=== PATIENT | male | born 1950 | race Caucasian/White ===

== ENCOUNTER → 2019-08-17 | Outpatient (CLI) | payer MEDICARE ==
--- NOTE | 2019-08-23 09:57 | P.ARTDOP ---
Arterial Doppler LOWER EXTREMITY ARTERIAL DOPPLER: DATE OF SERVICE: 08/17/2019 Reason for study: Suspected lower extremity occlusive disease. Doppler waveforms: Atypical bilaterally throughout. Toe waveforms are low amplitude and monophasic. Pulse volume recording: []. Pressure gradients: Above the low thigh and distally. Ankle-brachial indices: 0.62 on the right and 0.5 on the left. Toe pressures: 35 on the right, 33 on the left Impression: Moderate femoral popliteal occlusive disease with possible iliac component bilaterally. Toe pressures marginal for healing. Clinical correlation recommended.
== END | disposition home or self-care (01) ==
LOC: RADUSWWP 12:04
PROVIDERS: ATTEND Internal Medicine
DX: I74.3 Embolism and thrombosis of arteries of the lower extremities (principal)
CPT/HCPCS: 93923

== ENCOUNTER → 2019-08-28 | Outpatient (CLI) | payer MEDICARE ==
--- NOTE | 2019-08-29 08:04 | CTL ---
EXAMINATION TYPE: CT Low Dose Lung DATE OF EXAM ORDERED: 08/28/2019 HISTORY: Personal history of tobacco use. Lung cancer screening CT DLP: [address] CTDI: 1.95 mGy Automated exposure control for dose reduction was used. SCREENING VISIT: Initial COMPARISON: None TECHNIQUE: Low dose computed tomography scan was performed through the chest at 1 mm thick sections a nd reconstructed images in the coronal plane at [address] DIAGNOSTIC QUALITY: Limited, but interpretable FINDINGS: LUNG NODULES: None. LUNGS: COPD: Severity: None Fibrosis: Severity: None Lymph nodes: None Other findings: None RIGHT PLEURAL SPACE: Effusion: None Calcification: None Thickening: None Pneumothorax: None LEFT PLEURAL SPACE: Effusion: None Calcification: None Thickening: None Pneumothorax: None HEART: Heart Size: Normal Coronary calcification: Moderate Pericardial effusion: None OTHER FINDINGS: Upper abdomen: Normal Bony thorax: Unremarkable Supraclavicular region: Normal Other: Ascending thoracic aorta at the level the main pulmonary artery measures 3.3 cm. The main pul monary artery at the bifurcation measures 2.5 cm. IMPRESSION: 1. Unremarkable low-dose screening CT chest FOLLOW UP CT CHEST RECOMMENDATION: Follow-up per protocol low dose screening in [address] LUNG RAD: 1
== END | disposition home or self-care (01) ==
LOC: RADCTMAIN 15:37
PROVIDERS: ATTEND Internal Medicine
DX: Z12.2 Encounter for screening for malignant neoplasm of respiratory organs (principal); F17.200 Nicotine dependence, unspecified, uncomplicated

== ENCOUNTER → 2020-09-18 | Outpatient (CLI) | payer MEDICARE ==
--- NOTE | 2020-09-18 15:08 | CTL ---
EXAMINATION TYPE: CT Low Dose Lung DATE OF EXAM ORDERED: 09/18/2020 HISTORY: Long-term tobacco use. Lung cancer screening CT DLP: 96.[address] CTDI: 2.60 mGy Automated exposure control for dose reduction was used. SCREENING VISIT: First after baseline COMPARISON: Prior study August 28, 2019 TECHNIQUE: Low dose computed tomography scan was performed through the chest at 1 mm thick sections a nd reconstructed images in the coronal plane at [address] DIAGNOSTIC QUALITY: Limited, but interpretable MIP imaging not performed. FINDINGS: LUNG NODULES: None. A 6 mm peripheral scarlike opacity in the right lower lobectomies 195 appears to elongate on coronal and sagittal images. LUNGS: COPD: Severity: Mild to moderate Fibrosis: Severity: Mild to moderate biapical Lymph nodes: No greater than 1 cm Other findings: None BILATERAL PLEURAL SPACE: Effusion: None Calcification: None Thickening: None Pneumothorax: None HEART: Heart Size: Normal Coronary calcification: Moderate to severe Pericardial effusion: None OTHER FINDINGS: Upper abdomen: Small intraluminal gallstones Bony thorax: Slight scoliotic curvature Supraclavicular region: None. Other: None. IMPRESSION: No new suspicious nodules. FOLLOW UP CT CHEST RECOMMENDATION: Annual low-dose lung screening CT CT LUNG RAD: Lung-Rad 1 Negative
== END | disposition home or self-care (01) ==
LOC: RADCTMAIN 13:16
PROVIDERS: ATTEND Family Medicine
DX: Z12.2 Encounter for screening for malignant neoplasm of respiratory organs (principal); F17.210 Nicotine dependence, cigarettes, uncomplicated

== ENCOUNTER → 2021-04-21 | Outpatient (CLI) | payer MEDICARE ==
[2021-04-21 15:43] LABS: Basophils # (A) 0.1 k/uL (0-0.2); Basophils % (A) 1 %; Eosinophils # (A) 0.2 k/uL (0-0.7); Eosinophils % (A) 3 %; HGB 13.7 gm/dL (13.0-17.5); Lymphocytes # (A) 1.2 k/uL (1.0-4.8); Lymphocytes % (A) 16 %; MCH 31.4 pg (25.0-35.0); MCHC 33.3 g/dL (31.0-37.0); MCV 94.5 fL (80.0-100.0); Mean Platelet Volume 11.3; Monocytes # (A) 0.4 k/uL (0-1.0); Monocytes % (A) 6 %; Neutrophils # (A) 5.4 k/uL (1.3-7.7); Neutrophils % (A) 73 %; Platelet Count 176 k/uL (150-450); RBC 4.34 m/uL (4.30-5.90); RDW 13.6 % (11.5-15.5); WBC 7.4 k/uL (3.8-10.6)
[2021-04-21 15:53] LABS: Potassium 4.9 mmol/L (3.5-5.1)
== END | disposition home or self-care (01) ==
LOC: LABPAT 15:07
PROVIDERS: ATTEND Surgery
DX: Z01.812 Encounter for preprocedural laboratory examination (principal); I73.9 Peripheral vascular disease, unspecified
CPT/HCPCS: 80051; 82565; 84520; 85025

== ENCOUNTER 2021-05-07 11:44 | Day surgery (SDC) | payer MEDICARE ==
[2021-05-05 12:30] VITALS: BMI 25.7
[~2021-05-07 11:44] MED LIST: ASPIRIN 325 MG TAB PO PRN; SODIUM CHLORIDE 0.9% 1,000 ML in EMPTY BAG 1 BAG IV ONE
[2021-05-07] MEDS ORDERED: SODIUM CHLORIDE 0.9% 1,000 ML IV ONE (12:05)
[2021-05-07 12:09] LABS: Glucose,Whole Blood 128 mg/dL (75-99)
[2021-05-07] MEDS ORDERED: LIDOCAINE 1% INJ 10MG/ML (20 ML MDV) ONE (12:43)
[2021-05-07] MEDS ORDERED: MIDAZOLAM 2 MG/2 ML VIAL IV ONE (13:05)
[2021-05-07] MEDS ORDERED: LIDOCAINE 1% INJ 10MG/ML (20 ML MDV) SQ ONE (13:07)
[2021-05-07] MEDS ORDERED: CLOPIDOGREL 75 MG TAB ONE (14:21)
[2021-05-07] MEDS ORDERED: IOPAMIDOL-250 100ML BTL INTRAARTER ONE ×2 (14:25→14:26)
[2021-05-07] MEDS ORDERED: CLOPIDOGREL 75 MG TAB PO ONE (14:26)
[2021-05-07] MEDS ORDERED: SODIUM CHLORIDE 0.9% 1,000 ML IV SCH (14:30)
--- NOTE | 2021-05-07 17:33 | P.OP ---
Date of Procedure: 05/07/21 Description of Procedure: Preoperative diagnosis: E[place] 3 peripheral arterial disease, iliac occlusive disease, abnormal ALEJANDRO Postoperative diagnosis: Same Procedure: [#1 ultrasound-guided right common femoral artery access #2 ultrasound-guided left common femoral artery access #3 left iliofemoral angiogram #4 aortogram with runoffs #5 selective third order right lower extremity injury #6 percutaneous transluminal balloon angioplasty of the external iliac artery with 6 x 60 balloon #7 percutaneous self-expanding stent placement of the external iliac artery with a 7 x 60 stent #8 73 minutes of moderate conscious sedation] Surgeon: Sherin Block D.O. EBL: [Less than 10 mL] IV fluids: [See records] Urine output: [See records] Drains: [None] Complications: [None immediately apparent] Condition: [None immediately apparent] Operative indication and findings: [The patient is a 70-year-old male who has been having increasing pain in his lower extremities with ambulation. He was offered a diagnostic angiogram and presents today for this. Angiographic findings: The aorta appeared normal in course and caliber. Bilateral renal arteries are patent without evidence of significant disease. The infrarenal aorta is patent with some diffuse disease. Patent inferior mesenteric artery. On the right the common iliac artery has evidence of calcific disease without significant stenosis. The internal iliac artery appears patent without evidence of significant stenosis. There is an area of a pproximately 90% stenosis of the external iliac artery with a widely patent femoral artery the superficial femoral artery appears widely patent. Is difficult to visualize profunda femoris artery with areas of branching but no obvious profunda noted. There is three-vessel runoff at its takeoff with a patent AT and PT at the ankle On the left the common iliac artery has evidence of calcific disease without significant stenosis. The internal iliac has severe significant disease and is very small in caliber. The external iliac has an area of approximately 60% stenosis. The common femoral artery is widely patent. The profunda femoris appears, off in a medial fashion there is an area of high-grade stenosis at its takeoff. The superficial femoral artery is patent and does appear to have n umerous branches of collateral flow. The superficial femoral artery does occlude [place] after its takeoff and reconstitutes at the thigh. There appears to be an abnormal takeoff of the posterior tibial artery with a high branching at the level of the knee. Anterior tibial is patent although diminutive shortly after it's takeoff. There are 2 vessels at the ankle appearing to be the peroneal and posterior tibial ] Procedure in detail: [Patient was taken to the special suite and placed in supine position. The groins were prepped and draped in usual sterile fashion. A preprocedure timeout was performed with all parties in agreement. The ultrasound was utilized in the right common femoral artery was identified. There appeared to be a diminished pulse at this area. The multipurpose needle was used after proper anesthetization of the skin and the arteries access. The area was inability to pass the wire therefore the wire and needle removed. Pressure was held until hemostasis is adequate. Access was then performed on the left femoral artery with ultrasound guidance. Seldinger technique was used and a 5-Occitan sheath was placed. A left iliofemoral angiogram was performed revealing A 60% stenosis of the external iliac artery. Catheters wires were used to place in the aorta and an aortogram was performed. The catheter was brought down the level of the iliac bifurcation the bilateral lower extremity runoff was performed. With the findings as above. The decision was made at this time to treat the right external iliac artery given the degree of stenosis. Catheters and wires were used across this and a confirmatory angiogram was performed through the superficial femoral artery. A balloon angioplasty was performed with a 6 x 60 balloon repeat images performed revealing a dissection through this vessel therefore a noncovered self expanding stent was placed. After this a further angiogram was performed revealing good apposition with brisk flow. The patient had a strong palpable femoral pulse following this. That point catheters and wires were removed, the plan will be to come back for the left lower extremity treatment iliac and superficial femoral artery at that time. The sheath was removed and pressure was held until hemostasis was adequate. Plan - Discharge Summary Discharge Rx Participant: No New Discharge Prescriptions: New Clopidogrel [Plavix] 75 mg PO DAILY #30 tablet No Action Cyanocobalamin [Vitamin B-12] 500 mcg PO MOTUWETHFR Cilostazol [Pletal] 100 mg PO BID Atorvastatin [Lipitor] 40 mg PO HS lisinopriL [Zestril] 5 mg PO HS Aspirin [Adult Low Dose Aspirin EC] 81 mg PO QAM metFORMIN HCL [Glucophage] 500 mg PO BID Omeprazole 20 mg PO QAM NIFEdipine [NIFEdipine ER] 30 mg PO HS Discharge Medication List Aspirin [Adult Low Dose Aspirin EC] 81 mg PO QAM 05/05/21 [History] Atorvastatin [Lipitor] 40 mg PO HS 05/05/21 [History] Cilostazol [Pletal] 100 mg PO BID 05/05/21 [History] Cyanocobalamin [Vitamin B-12] 500 mcg PO MOTUWETHFR 05/05/21 [History] NIFEdipine [NIFEdipine ER] 30 mg PO HS 05/05/21 [History] Omeprazole 20 mg PO QAM 05/05/21 [History] lisinopriL [Zestril] 5 mg PO HS 05/05/21 [History] metFORMIN HCL [Glucophage] 500 mg PO BID 05/05/21 [History] Clopidogrel [Plavix] 75 mg PO DAILY #30 tablet 05/07/21 [Rx] Follow up Appointment(s)/Referral(s): Sherin Block DO [STAFF PHYSICIAN] - 05/14/21 11:45 am Patient Instructions/Handouts: Peripheral Vascular Angioplasty (DC) Activity/Diet/Wound Care/Special Instructions: Light activity, no heavy lifting for 48h. Resume home medications. HOLD Metformin for 48 hours, then resume. Discharge Disposition: HOME SELF-CARE
[2021-05-07 17:40] VITALS: TEMP 98.7
[2021-05-07 20:01] VITALS: BP 167/80; PULSE 67
[2021-05-07 20:10] VITALS: RESP 18
[2021-05-07 20:28] LABS: Glucose,Whole Blood 186 mg/dL (75-99)
--- NOTE | 2021-05-08 09:13 | IR ---
Fluoroscopy HISTORY: Peripheral vascular occlusive disease 7.2 minutes fluoroscopy time supplied to the referring clinician. 143 intraoperative C-arm images d ocument the procedure. See dictated report from vascular surgery.
== END 2021-05-07 20:55 | disposition home or self-care (01) ==
LOC: CATHCVL 11:44 → 6NMEDSUR 15:30 → CATHCVL 20:55
PROVIDERS: ATTEND Surgery
DX: E11.51 Type 2 diabetes mellitus with diabetic peripheral angiopathy without gangrene (principal); I70.211 Atherosclerosis of native arteries of extremities with intermittent claudication, right leg; I10 Essential (primary) hypertension; E78.5 Hyperlipidemia, unspecified; E11.40 Type 2 diabetes mellitus with diabetic neuropathy, unspecified; J84.10 Pulmonary fibrosis, unspecified; Z20.822 Contact with and (suspected) exposure to COVID-19; Z82.49 Family history of ischemic heart disease and other diseases of the circulatory system; Z87.891 Personal history of nicotine dependence; Z79.84 Long term (current) use of oral hypoglycemic drugs; Z79.02 Long term (current) use of antithrombotics/antiplatelets; Z79.82 Long term (current) use of aspirin; Z79.899 Other long term (current) drug therapy
CPT/HCPCS: 37221; 75625; 75716; 87635; C1894 ×2; C1769 ×5; C1876; J2250; J2001; Q9966

== ENCOUNTER 2021-09-15 17:17 | Inpatient (IN) | payer MEDICARE ==
[2021-09-15 18:03] LABS: Basophils # (A) 0.1 k/uL (0-0.2); Basophils % (A) 0 %; Eosinophils # (A) 0.2 k/uL (0-0.7); Eosinophils % (A) 1 %; HCT 40.6 % (39.0-53.0); HGB 13.7 gm/dL (13.0-17.5); Lymphocytes # (A) 1.1 k/uL (1.0-4.8); Lymphocytes % (A) 5 %; MCH 31.5 pg (25.0-35.0); MCHC 33.8 g/dL (31.0-37.0); MCV 92.9 fL (80.0-100.0); Mean Platelet Volume 10.6; Monocytes % (A) 5 %; Neutrophils # (A) 18.8 k/uL (1.3-7.7); Neutrophils % (A) 87 %; Platelet Count 311 k/uL (150-450); RBC 4.37 m/uL (4.30-5.90); RDW 13.1 % (11.5-15.5); WBC 21.6 k/uL (3.8-10.6)
[2021-09-15 18:11] LABS: Albumin 4.4 g/dL (3.5-5.0); Calcium 9.5 mg/dL (8.4-10.2); Magnesium 1.6 mg/dL (1.6-2.3); Potassium 4.5 mmol/L (3.5-5.1); Total Bilirubin 1.2 mg/dL (0.2-1.3); Total Protein 8.1 g/dL (6.3-8.2)
[2021-09-15 18:40] LABS: Partial Thromboplastin Time 24.9 sec (22.0-30.0); Prothrombin Time 10.8 sec (9.0-12.0)
--- NOTE | 2021-09-15 18:47 | ED ---
Chest Pain HPI - General Chief Complaint: Chest Pain Stated Complaint: chest pain Time Seen by Provider: 09/15/21 17:25 Source: patient Mode of arrival: ambulatory Limitations: no limitations - History of Present Illness Initial Comments: 71-year-old male presents emergency Department with shortness of breath and chest pain. He states that his symptoms have been going on for the past month. He did follow up with his primary care physician who diagnosed him with ALLERGIES. States that over the course of the weekend his chest became worse. He describes it as pleuritic in nature. Starts in the mid center of his chest and radiates to the left shoulder. Pain was intermittent however has become constant. Denies any fevers. Patient was vaccinated against influenza last week. Received Covid vaccine earlier this year. He denies any fevers or chills. Does admit to associated shortness of breath. No nausea or vomiting. No previous history of cardiac or pulmonary disease. Patient was a smoker for several decades however quit. Denies cough. No history of DVT or PE. No other alleviating, precipitating or modifying factors - Related Data Home Medications Medication Instructions Recorded Confirmed Aspirin [Adult Low Dose Aspirin EC] 81 mg PO DAILY 05/05/21 09/15/21 Atorvastatin [Lipitor] 40 mg PO DAILY 05/05/21 09/15/21 Cyanocobalamin [Vitamin B-12] 500 mcg PO MOTUWETHFR 05/05/21 09/15/21 NIFEdipine [NIFEdipine ER] 30 mg PO DAILY 05/05/21 09/15/21 lisinopriL [Zestril] 5 mg PO DAILY 05/05/21 09/15/21 metFORMIN HCL [Glucophage] 500 mg PO BID 05/05/21 09/15/21 Ergocalciferol (Vitamin D2) 1,250 mcg PO FR 09/15/21 09/15/21 [Drisdol (50,000 Iu)] Fluticasone Nasal [place] [Flonase 1 spray EA NOSTRIL DAILY 09/15/21 09/15/21 Nasal [place]] Montelukast [Singulair] 10 mg PO DAILY 09/15/21 09/15/21 Previous Rx's Medication Instructions Recorded Clopidogrel [Plavix] 75 mg PO DAILY #30 tablet 05/07/21 Colchicine [Colcrys] 0.6 mg PO DAILY #30 each 09/18/21 Allergies Allergy/AdvReac Type Severity Reaction Status Date / Time No Known Allergies Allergy Verified 09/15/21 19:37 Review of Systems ROS Statement: Those systems with pertinent positive or pertinent negative responses have been documented in the HPI. ROS Other: All systems not noted in ROS Statement are negative. EKG Findings - EKG Comments: EKG Findings:: EKG demonstrates sinus tachycardia with a ventricular rate of 105. NM interval 170. QRS 68. QTC of 449. No acute ST segment elevations. J-point elevation in the inferior leads. Inverted T waves 1 and aVL Past Medical History Past Medical History: Diabetes Mellitus, GERD/Reflux, Hyperlipidemia, Hyperten travis Additional Past Medical History / Comment(s): hx of peptic ulcer, pain carmelo legs History of Any Multi-Drug Resistant Organisms: None Reported Past Surgical History: Orthopedic Surgery Additional Past Surgical History / Comment(s): left ankle ORIF with metal, now removed Past Anesthesia/Blood Transfusion Reactions: No Reported Reaction Past Psychological History: Depression Smoking Status: Former smoker Past Alcohol Use History: None Reported Past Drug Use History: None Reported - Past Family History Father Family Medical History: Myocardial Infarction (OR) Additional Family Medical History / Comment(s): Father of a OR at the age of 84 yrs. Mother Additional Family Medical History / Comment(s): Mother was found at the age of 42yrs. General Exam Limitations: no limitations General appearance: alert, in no apparent distress Head exam: Present: atraumatic, normocephalic, normal inspection Eye exam: Present: normal appearance, PERRL, EOMI. Absent: scleral icterus, conjunctival injection, periorbital swelling ENT exam: Present: normal exam, mucous membranes moist Neck exam: Present: normal inspection. Absent: tenderness, meningismus, lymphadenopathy Respiratory exam: Present: normal lung sounds bilaterally, other (tachypnia). Absent: respiratory distress, wheezes, rales, rhonchi, stridor Cardiovascular Exam: Present: normal rhythm, tachycardia, normal heart sounds. Absent: systolic murmur, diastolic murmur, rubs, gallop, clicks GI/Abdominal exam: Present: soft, normal bowel sounds. Absent: distended, tenderness, guarding, rebound, rigid Extremities exam: Present: normal inspection, full ROM, normal capillary refill. Absent: tenderness, pedal edema, joint swelling, calf tenderness Back exam: Present: normal inspection Neurological exam: Present: alert, oriented X3, CN II-XII intact Psychiatric exam: Present: normal affect, normal mood Skin exam: Present: warm, dry, intact, normal color. Absent: rash Course Vital Signs 09/15/21 09/15/21 09/15/21 17:21 18:48 22:29 Temperature 96.8 F L 97.6 F Pulse Rate 107 H 100 113 H Pulse Rate [ Piano Technician ] Respiratory 18 20 22 Rate Blood Pressure 165/88 149/83 137/79 Blood Pressure [Right Arm] O2 Sat by Pulse 97 100 96 Oximetry 09/15/21 09/16/21 09/16/21 23:30 01:00 03:00 Temperature Pulse Rate 106 H 112 H 109 H Pulse Rate [ Piano Technician ] Respiratory 18 18 18 Rate Blood Pressure Blood Pressure [Right Arm] O2 Sat by Pulse 94 L 93 L 93 L Oximetry 09/16/21 09/16/21 09/16/21 05:00 10:17 10:22 Temperature 98.1 F 97.4 F L Pulse Rate 110 H 123 H Pulse Rate [ Piano Technician ] Respiratory 18 18 Rate Blood Pressure 147/95 155/97 Blood Pressure [Right Arm] O2 Sat by Pulse 93 L 94 L Oximetry 09/16/21 09/17/21 09/17/21 20:00 00:00 01:25 Temperature 98.3 F 98.3 F Pulse Rate Pulse Rate [ 101 H 103 H 103 H Piano Technician ] Respiratory 16 18 18 Rate Blood Pressure Blood Pressure 125/71 125/66 [Right Arm] O2 Sat by Pulse 94 L 91 L Oximetry 09/17/21 09/17/21 09/17/21 04:00 08:38 12:45 Temperature 98.1 F 98.5 F 98.1 F Pulse Rate 92 93 Pulse Rate [ 99 Piano Technician ] Respiratory 17 18 18 Rate Blood Pressure 108/63 114/61 Blood Pressure 127/70 [Right Arm] O2 Sat by Pulse 93 L 95 96 Oximetry 09/17/21 09/17/21 14:31 15:51 Temperature 98.9 F Pulse Rate 96 91 Pulse Rate [ Piano Technician ] Respiratory 18 18 Rate Blood Pressure 105/57 109/60 Blood Pressure [Right Arm] O2 Sat by Pulse 97 96 Oximetry - Reevaluation(s) Reevaluation #1: Spoke with Dr. Garcia 09/15/21 22:23 Chest Pain MDM - MDM Upon arrival patient is placed into room 5. A thorough history and physical exam was performed. IV is established and laboratory studies are conducted. Patient is sent over for a CT of his chest due to his reported pleuritic chest pain with elevated heart rate. Laboratory studies are reviewed and demonstrated a white count of 21.6. D-dimer 0.82. Sodium 128. CT demonstrates no acute PE. There is a moderate pericardial effusion with dependent atelectasis and a trace left pleural effusion. I did call and speak with Dr. Garcia who is requesting a stat echo. I did attempt to perform a bedside ultrasound however patient is extremely difficult to visualize. We did call in the laboratory technology teacher. I spoke with Dr. Frias who agreed to admit the patient. I will place the patient on antibiotics. Patient remained in hemodynamically stable condition awaiting a bed Disposition Clinical Impression: Chest pain, Pericardial effusion Disposition: ADMITTED IP TO THIS [facility] Condition: Good Is patient prescribed a controlled substance at d/c from ED?: No Decision to Admit Reason: Admit from EC Decision Date: 09/15/21 Decision Time: 22:15
--- NOTE | 2021-09-15 19:20 | CT ---
EXAMINATION TYPE: CT chest angio for PE DATE OF EXAM: 09/15/2021 COMPARISON: 09/18/2020 HISTORY: Chest pain. CT DLP: 390.1 mGycm Automated exposure control for dose reduction was used. CONTRAST: CT Chest for pulmonary embolism performed with with IV Contrast, patient injected with 100 mL of Isov ue 370. FINDINGS: LUNGS: There is mild dependent opacities with trace left pleural effusion. No pneumothorax seen. The tracheobronchial tree is patent. MEDIASTINUM: There is satisfactory enhancement of the pulmonary artery and its branches, there is no CT evidence for pulmonary embolism. There are no greater than 1 cm hilar or mediastinal lymph nodes. Moderate pericardial effusion is seen. Otherwise heart size within normal limits OTHER: No additional significant abnormality is seen. IMPRESSION: No acute PE. Moderate pericardial effusion. Dependent atelectasis with trace left pleural effusion.
[2021-09-15] MEDS ORDERED: PIPERACILLIN-TAZOBACTAM 3.375 GM in SODIUM CHLORIDE 0.9% 100 ML IVPB STA (21:59)
[2021-09-15] MEDS ORDERED: NALOXONE 0.4 MG/ML 1 ML VIAL IV PRN (22:15)
[2021-09-16 03:18] LABS: Basophils % (A) 0 %; Eosinophils % (A) 0 %; HCT 37.1 % (39.0-53.0); Lymphocytes # (A) 0.8 k/uL (1.0-4.8); Lymphocytes % (A) 4 %; MCH 31.6 pg (25.0-35.0); MCHC 34.9 g/dL (31.0-37.0); MCV 90.4 fL (80.0-100.0); Mean Platelet Volume 10.7; Monocytes % (A) 5 %; Neutrophils % (A) 91 %; Platelet Count 278 k/uL (150-450); RBC 4.11 m/uL (4.30-5.90); RDW 13.7 % (11.5-15.5); WBC 20.9 k/uL (3.8-10.6)
[2021-09-16 03:35] LABS: Calcium 8.8 mg/dL (8.4-10.2); Potassium 4.9 mmol/L (3.5-5.1)
--- NOTE | 2021-09-16 10:00 | ECHOF ---
Referral Reason: MEASUREMENTS -------- HEIGHT: 0.0 cm WEIGHT: 0.0 kg BP: IVSd: 1.8 cm (0.6 - 1.1) LVIDd: 3.5 cm (3.9 - 5.3) LVPWd: 1.7 cm (0.6 - 1.1) IVSs: 2.1 cm LVIDs: 2.4 cm LVPWs: 1.1 cm Ao Diam: 2.9 cm (2.0 - 3.7) LA Diam: 4.5 cm (2.7 - 3.8) MV E Jaun: 0.79 m/s MV DecT: 309 ms MV A Jaun: 1.20 m/s MV E/A Ratio: 0.66 FINDINGS -------- Resting tachycardia (HR>100bpm). This was a technically difficult study with suboptimal views. The left ventricular size is normal. There is moderate concentric left ventricular hypertrophy. O verall left ventricular systolic function is normal with, an EF between 55 - 60 %. The RV was not well visualized. The left atrium was not well visualized. The right atrium was not well visualized. 5.0mg of Lumason was utilized for enhancement of images The aortic valve was not well visualized. There is no evidence of aortic regurgitation. There is no evidence of aortic stenosis. No mitral regurgitation. The tricuspid valve was not well visualized. The pulmonic valve was not well visualized. The aortic root size is normal. IVC Not well visulized. There is a moderate, generalized pericardial effusion present. There is no evidence of cardiac tamp onade. CONCLUSIONS -------- 1. The left ventricular size is normal. 2. There is moderate concentric left ventricular hypertrophy. 3. Overall left ventricular systolic function is normal with, an EF between 55 - 60 %. 4. There is a moderate, generalized pericardial effusion present. GRADUATE ADVISOR: Mckayla Leavitt RDCS
[2021-09-16] MEDS: ATORVASTATIN 40 MG TAB PO SCH (10:16)
[2021-09-16] MEDS: MONTELUKAST 10 MG TAB PO SCH (10:16)
[2021-09-16] MEDS: COLCHICINE 0.6 MG EACH PO SCH (11:16)
[2021-09-16] MEDS: PANTOPRAZOLE 40 MG TABLET PO SCH (11:16)
[2021-09-16] MEDS: IBUPROFEN 800 MG TAB PO SCH ×2 (11:16→23:12)
[2021-09-16] MEDS: lisinopriL 5 MG TAB PO SCH (12:28)
--- NOTE | 2021-09-16 13:13 | P.HPIM ---
History of Present Illness H&P Date: 09/16/21 HISTORY OF PRESENT ILLNESS This is a 71-year-old male patient of Dr. Monge with past medical history of mild intermittent asthma, diabetes mellitus type 2, hypertension, hyper lipidemia, peripheral artery disease, remote history of tobacco use. Patient states that he has had chest pain for the past 2-3 weeks and then developed difficulty taking a deep breath. He started taking Motrin when the pain lasted longer. He is now having shortness of breath and pain with breathing and came into the hospital for further evaluation. Patient was found to be afebrile, heart rate 107, blood pressure 165/88, pulse ox 97% on room air. EKG was a sinus tachycardia, T-wave inversion in lead [address] angiogram of the chest was negative for PE. Moderate pericardial effusion. Dependent atelectasis with trace left pleural effusion. Echocardiogram reveals EF of 55-60% with moderate concentric left hypertrophy, moderate generalized pericardial effusion. Patient is seen today in the emergency center waiting for a bed on the cardiac stepdown unit, consult in place with cardiology and cardiothoracic surgery regarding her cardial effusion. REVIEW OF SYSTEMS Constitutional: No fever, no chills, no night sweats. No weight change. No weakness, fatigue or lethargy. No daytime sleepiness. EENT: No headache. No blurred vision or double vision, no loss of vision. No loss of Hearing, no ringing in the ears, no dizziness. No nasal drainage or c ongestion. No epistaxis. No sore throat. Lungs: No shortness of breath, cough, no sputum production. No wheezing. Cardiovascular: No chest pain, no lower extremity edema. No palpitations. No paroxysmal nocturnal dyspnea. No orthopnea. No lightheadedness or dizziness. No syncopal episodes. Abdominal: No abdominal pain. No nausea, vomiting. No diarrhea. No constipation. No bloody or tarry stools. No loss of appetite. Genitourinary: No dysuria, increased frequency, urgency. No urinary retention. Musculoskeletal: No myalgias. No muscle weakness, no gait dysfunction, no frequent falls. No back pain. No neck pain. Integumentary: No wounds, no lesions. No rash or pruritus. No unusual bruising. No change in hair or nails. Neurologic: No aphasia. No facial droop. No change in mentation. No head injury. No headache. No paralysis. No paresthesia. Psychiatric: No depression. No anxiety. No mood swings. Endocrine: No abnormal blood sugars. No weight change. No excessive sweating or thirst. No cold intolerance. SOCIAL HISTORY Patient was a smoker of one to 3 packs per day for greater than 50 years and quit in November 2019. No alcohol use, marijuana or illicit drug use. 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 FAMILY HISTORY Father at age 84 from myocardial infarction. Mother at age 42 from myocardial infarction. Patient is 2 brothers and one has history of MS and when his platelets problems. PHYSICAL EXAMINATION Gen: This is 71-year-old male, resting on the ER stretcher and appears to be comfortable, no acute respiratory distress noted. HEENT: Head is atraumatic, normocephalic. Pupils equal, round. Sclerae is anicteric. NECK: Supple. No JVD. No lymphadenopathy. No thyromegaly. LUNGS: Lung sounds diminished bilaterally. No wheezes or rhonchi. No intercostal retractions. HEART: Irregular rate and rhythm. No murmur. ABDOMEN: Soft. Bowel sounds are present. No masses. No tenderness. EXTREMITIES: No pedal edema. No calf tenderness. NEUROLOGICAL: Patient is awake, alert and oriented x3. Cranial nerves 2 through 12 are grossly intact. ASSESSMENT AND PLAN 1. Chest pain. Patient to be admitted to the cardiac stepdown unit, cardiology consult. 2. Pericardial effusion. Consult cardiology and cardiothoracic surgery. Patient has been started on colchicine 0.6 mg daily, Motrin 800 mg 3 times daily. Plavix and aspirin on hold until patient evaluated by cardiothoracic surgery. 3. Mild intermittent asthma without exacerbation. Continue Flonase and Singulair. 4. Diabetes mellitus type 2. Metformin on hold. Continue NovoLog scale before meals and at bedtime. 5. Hypertension. Continue lisinopril 5 mg daily, Procardia XL 30 mg daily. 6. Hyperlipidemia. Continue Lipitor 40 mg daily. 7. Peripheral artery disease. Resume patient on Plavix 75 mg daily and aspirin once cleared by cardiothoracic surgery. 8. GI prophylaxis. Protonix. 9. DVT prophylaxis. Patient will be admitted to the hospital for a minimum of 2 night stay. DISCHARGE PLAN [ ]. Impression and plan of care have been directed as dictated by the signing physician. Mary Patel nurse practitioner acting as scribe for signing physician. Past Medical History Past Medical History: COPD, Diabetes Mellitus, GERD/Reflux, Hyperlipidemia, Hypertension, Vascular Disorder Additional Past Medical History / Comment(s): hx of peptic ulcer, pain carmelo legs History of Any Multi-Drug Resistant Organisms: None Reported Past Surgical History: Orthopedic Surgery Additional Past Surgical History / Comment(s): left ankle ORIF with metal, now removed. Left external iliac stent placement for peripheral arterial disease in April 2021. Past Anesthesia/Blood Transfusion Reactions: No Reported Reaction Past Psychological History: Depression Smoking Status: Former smoker (Quit smoking in November 2020) Past Alcohol Use History: None Reported Past Drug Use History: None Reported - Past Family History Father Family Medical History: Myocardial Infarction ([place]) Additional Family Medical History / Comment(s): Father of a [place] at the age of 84 yrs. Mother Additional Family Medical History / Comment(s): Mother was found at the age of 42yrs. Medications and Allergies Home Medications Medication Instructions Recorded Confirmed Type Aspirin [Adult Low Dose Aspirin EC] 81 mg PO DAILY 05/05/21 09/15/21 History Atorvastatin [Lipitor] 40 mg PO DAILY 05/05/21 09/15/21 History Cyanocobalamin [Vitamin B-12] 500 mcg PO MOTUWETHFR 05/05/21 09/15/21 History NIFEdipine [NIFEdipine ER] 30 mg PO DAILY 05/05/21 09/15/21 History lisinopriL [Zestril] 5 mg PO DAILY 05/05/21 09/15/21 History metFORMIN HCL [Glucophage] 500 mg PO BID 05/05/21 09/15/21 History Clopidogrel [Plavix] 75 mg PO DAILY #30 tablet 05/07/21 09/15/21 Rx Ergocalciferol (Vitamin D2) 1,250 mcg PO FR 09/15/21 09/15/21 History [Drisdol (50,000 Iu)] Fluticasone Nasal [place] [Flonase 1 spray EA NOSTRIL DAILY 09/15/21 09/15/21 History Nasal [place]] Montelukast [Singulair] 10 mg PO DAILY 09/15/21 09/15/21 History Allergies Allergy/AdvReac Type Severity Reaction Status Date / Time No Known Allergies Allergy Verified 09/15/21 19:37 Physical Exam Vitals: Vital Signs Temp Pulse Resp BP Pulse Ox 09/16/21 10:22 97.4 F L 09/16/21 10:17 123 H 18 155/97 94 L 09/16/21 05:00 98.1 F 110 H 18 147/95 93 L 09/16/21 03:00 109 H 18 93 L 09/16/21 01:00 112 H 18 93 L 09/15/21 23:30 106 H 18 94 L 09/15/21 22:29 97.6 F 113 H 22 137/79 96 09/15/21 18:48 100 20 149/83 100 09/15/21 17:21 96.8 F L 107 H 18 165/88 97 Intake and Output 09/15/21 09/16/21 09/16/21 22:59 06:59 14:59 Other: Weight 81.647 kg 81.647 kg Results CBC & Chem 7: 09/16/21 03:07 09/16/21 03:07 Labs: Abnormal Lab Results - Last 24 Hours (Table) 09/15/21 09/15/21 09/15/21 Range/Units 17:57 17:57 17:57 WBC 21.6 H (3.8-10.6) k/uL RBC (4.30-5.90) m/uL Hct (39.0-53.0) % Neutrophils # 18.8 H (1.3-7.7) k/uL Lymphocytes # (1.0-4.8) k/uL D-Dimer 0.82 H (<0.60) mg/L FEU Sodium 128 L (137-145) mmol/L Chloride 93 L (98-107) mmol/L Carbon Dioxide 19 L (22-30) mmol/L BUN (9-20) mg/dL Glucose 174 H (74-99) mg/dL 09/16/21 09/16/21 Range/Units 03:07 03:07 WBC 20.9 H (3.8-10.6) k/uL RBC 4.11 L (4.30-5.90) m/uL Hct 37.1 L (39.0-53.0) % Neutrophils # 19.0 H (1.3-7.7) k/uL Lymphocytes # 0.8 L (1.0-4.8) k/uL D-Dimer (<0.60) mg/L FEU Sodium 125 L (137-145) mmol/L Chloride 95 L (98-107) mmol/L Carbon Dioxide 18 L (22-30) mmol/L BUN 23 H (9-20) mg/dL Glucose 194 H (74-99) mg/dL Thrombosis Risk Factor Assmnt - Choose All That Apply Any of the Below Risk Factors Present?: Yes Each Factor Represents 1 point: Abnormal pulmonary function (COPD), Obesity (BMI >25) Other Risk Factors: Yes Each Risk Factor Represents 2 Points: Age 61-74 years Other congenital or acquired thrombophilia - If yes, enter type in comment: No Thrombosis Risk Factor Assessment Total Risk Factor Score: 4 Thrombosis Risk Factor Assessment Level: Moderate Risk
[2021-09-16 13:14] LABS: Glucose,Whole Blood 164 mg/dL (75-99)
[2021-09-16] MEDS: NIFEdipine XL 30 MG TAB.ER.24 PO SCH (13:19)
[2021-09-16] MEDS: INSULIN ASPART (NovoLOG) 100 UNIT/ML VIAL SQ SCH ×3 (13:20→20:25)
--- NOTE | 2021-09-16 14:03 | P.GSCN ---
History of Present Illness Consult date: 09/16/21 Reason for Consult: Pericardial effusion Requesting physician: Bailey Madden History of present illness: This is a 71-year-old gentleman who follows with Dr. Deysi leahy on an outpatient basis for his primary care service. He is a past medical history significant for hypertension, hyperlipidemia, diabetes mellitus type 2, lower extremity peripheral arterial disease, status post stent placement to his left external iliac artery in April 2021, bilateral lower extremity neuropathy, asthma, obesity with a BMI 26.6 kg/m2 pulmonary fibrosis, mild to moderate per computed tomography scan of his chest in September 2020, and history of tobacco dependence quit smoking in November 2020. The patient presented to the emergency department here at [facility] yesterday for complaints of only being able to take short breaths, a persistent cough with clear phlegm, pressure in his right ear, headache and pain in his chest when he lays flat or on his left side. He also reports that he has had some recent nasal congestion and feels he has a infected tooth to one of his lower left molars. The patient s tates that he feels like these symptoms have been present for about one month and has progressively been getting worse. He denies any recent fever, chills, nausea, vomiting, trauma, palpitations, hemoptysis, hematemesis, edema, diarrhea or constipation. He also reports that he has been vaccinated for COVID-19 with [facility] and has also been vaccinated for influenza within the last week or so. On admission the patient's EKG showed a heart rate of [address] sinus tachycardia with slight ST elevation in leads II, III, and aVF. Initial laboratory results showed a WBC count of 21.6, hemoglobin 13.7, platelets 311, d-dimer 0.82, sodium 128, carbon dioxide 19, BUN 20, creatinine 1.12, glucose 174, magnesium 1.6, proBNP 252 and serial troponins less than 0.012. A coronavirus PCR was also completed which showed not detected. Due to the patient's presenting symptoms and elevated d-dimer a CT chest angiogram for PE was completed which demonstrated no acute PE, moderate pericardial effusion and dependent atelectasis with trace left pleural effusion. Admitting vital signs showed a temperature of 96.8F, heart rate 170 bpm, blood pressure 165/88 with a map of 113 and oxygen saturation is 97% on room air. Due to the patient's presenting symptoms and findings on his computed tomography scan of his chest a consult was placed to Dr. Nuno Hernandez from cardiothoracic surgery for further evaluation and treatment recommendations. Review of Systems A 14 point review of systems was completed was negative except as mentioned in the HPI. Past Medical History Past Medical History: COPD, Diabetes Mellitus, GERD/Reflux, Hyperlipidemia, Hypertension, Vascular Disorder Additional Past Medical History / Comment(s): hx of peptic ulcer, pain carmelo legs History of Any Multi-Drug Resistant Organisms: None Reported Past Surgical History: Orthopedic Surgery Additional Past Surgical History / Comment(s): left ankle ORIF with metal, now removed. Left external iliac stent placement for peripheral arterial disease in April 2021. Past Anesthesia/Blood Transfusion Reactions: No Reported Reaction Past Psychological History: Depression Smoking Status: Former smoker (Quit smoking in November 2020) Past Alcohol Use History: None Reported Past Drug Use History: None Reported - Past Family History Father Family Medical History: Myocardial Infarction ([place]) Additional Family Medical History / Comment(s): Father of a [place] at the age of 84 yrs. Mother Additional Family Medical History / Comment(s): Mother was found at the age of 42yrs. Medications and Allergies Home Medications Medication Instructions Recorded Confirmed Type Aspirin [Adult Low Dose Aspirin EC] 81 mg PO DAILY 05/05/21 09/15/21 History Atorvastatin [Lipitor] 40 mg PO DAILY 05/05/21 09/15/21 History Cyanocobalamin [Vitamin B-12] 500 mcg PO MOTUWETHFR 05/05/21 09/15/21 History NIFEdipine [NIFEdipine ER] 30 mg PO DAILY 05/05/21 09/15/21 History lisinopriL [Zestril] 5 mg PO DAILY 05/05/21 09/15/21 History metFORMIN HCL [Glucophage] 500 mg PO BID 05/05/21 09/15/21 History Clopidogrel [Plavix] 75 mg PO DAILY #30 tablet 05/07/21 09/15/21 Rx Ergocalciferol (Vitamin D2) 1,250 mcg PO FR 09/15/21 09/15/21 History [Drisdol (50,000 Iu)] Fluticasone Nasal [place] [Flonase 1 spray EA NOSTRIL DAILY 09/15/21 09/15/21 History Nasal [place]] Montelukast [Singulair] 10 mg PO DAILY 09/15/21 09/15/21 History Allergies Allergy/AdvReac Type Severity Reaction Status Date / Time No Known Allergies Allergy Verified 09/15/21 19:37 Surgical - Exam Vital Signs Temp Pulse Resp BP Pulse Ox 96.8 F L 107 H 18 165/88 97 09/15/21 17:21 09/15/21 17:21 09/15/21 17:21 09/15/21 17:21 09/15/21 17:21 - General well developed, well nourished, no distress, no pain, obese - Eyes PERRL, normal ocular movement, no pale, no icteric - ENT nasal congestion normal pinna, normal nares, normal mucosa, no hearing loss - Neck Neck is supple, JVD bilateral. no masses, no bruits, trachea midline, no venous distension - Respiratory Lungs sounds essentially clear throughout, diminished to his bilateral bases with few scattered crackles. Respirations tachypnea, symmetrical and nonlabored. Oxygen saturation on room air are 93%. No wheezes or rhonchi. - Cardiovascular Regular rhythm and rate. S1 and S2 present, negative for S3, or gallop. Positive pansystolic murmur. No edema present. Bedside telemetry showing norm al sinus tachycardia heart rate 111 BPM. - Abdomen Abdomen is soft, nontender and nondistended. Active bowel sounds present in all 4 abdominal quadrants. No guarding or rigidity. No organomegaly appreciated. - Integumentary Skin is warm and dry. No clubbing or cyanosis is present. No rash or abnormal pigmentation is present. no rash, no growths, no abnormal pigmentation - Neurologic Cranial nerves II through XII intact. No motor or focal deficits. - Musculoskeletal Moves all 4 extremities with equal strength bilateral. - Psychiatric oriented to time, oriented to person, oriented to place, speech is normal, memory intact Results - Labs 09/16/21 03:07 09/16/21 03:07 Abnormal Lab Results - Last 24 Hours (Table) 09/15/21 09/15/21 09/15/21 Range/Units 17:57 17:57 17:57 WBC 21.6 H (3.8-10.6) k/uL RBC (4.30-5.90) m/uL Hct (39.0-53.0) % Neutrophils # 18.8 H (1.3-7.7) k/uL Lymphocytes # (1.0-4.8) k/uL D-Dimer 0.82 H (<0.60) mg/L FEU Sodium 128 L (137-145) mmol/L Chloride 93 L (98-107) mmol/L Carbon Dioxide 19 L (22-30) mmol/L BUN (9-20) mg/dL Glucose 174 H (74-99) mg/dL 09/16/21 09/16/21 Range/Units 03:07 03:07 WBC 20.9 H (3.8-10.6) k/uL RBC 4.11 L (4.30-5.90) m/uL Hct 37.1 L (39.0-53.0) % Neutrophils # 19.0 H (1.3-7.7) k/uL Lymphocytes # 0.8 L (1.0-4.8) k/uL D-Dimer (<0.60) mg/L FEU Sodium 125 L (137-145) mmol/L Chloride 95 L (98-107) mmol/L Carbon Dioxide 18 L (22-30) mmol/L BUN 23 H (9-20) mg/dL Glucose 194 H (74-99) mg/dL Diabetes panel 09/15/21 09/16/21 Range/Units 17:57 03:07 Sodium 128 L 125 L (137-145) mmol/L Potassium 4.5 4.9 (3.5-5.1) mmol/L Chloride 93 L 95 L (98-107) mmol/L Carbon Dioxide 19 L 18 L (22-30) mmol/L BUN 20 23 H (9-20) mg/dL Creatinine 1.12 1.07 (0.66-1.25) mg/dL Glucose 174 H 194 H (74-99) mg/dL Calcium 9.5 8.8 (8.4-10.2) mg/dL AST 18 (17-59) U/L ALT 15 (4-49) U/L Alkaline Phosphatase 108 (38-126) U/L Total Protein 8.1 (6.3-8.2) g/dL Albumin 4.4 (3.5-5.0) g/dL Calcium panel 09/15/21 09/16/21 Range/Units 17:57 03:07 Calcium 9.5 8.8 (8.4-10.2) mg/dL Albumin 4.4 (3.5-5.0) g/dL Pituitary panel 09/15/21 09/16/21 Range/Units 17:57 03:07 Sodium 128 L 125 L (137-145) mmol/L Potassium 4.5 4.9 (3.5-5.1) mmol/L Chloride 93 L 95 L (98-107) mmol/L Carbon Dioxide 19 L 18 L (22-30) mmol/L BUN 20 23 H (9-20) mg/dL Creatinine 1.12 1.07 (0.66-1.25) mg/dL Glucose 174 H 194 H (74-99) mg/dL Calcium 9.5 8.8 (8.4-10.2) mg/dL Adrenal panel 09/15/21 09/16/21 Range/Units 17:57 03:07 Sodium 128 L 125 L (137-145) mmol/L Potassium 4.5 4.9 (3.5-5.1) mmol/L Chloride 93 L 95 L (98-107) mmol/L Carbon Dioxide 19 L 18 L (22-30) mmol/L BUN 20 23 H (9-20) mg/dL Creatinine 1.12 1.07 (0.66-1.25) mg/dL Glucose 174 H 194 H (74-99) mg/dL Calcium 9.5 8.8 (8.4-10.2) mg/dL Total Bilirubin 1.2 (0.2-1.3) mg/dL AST 18 (17-59) U/L ALT 15 (4-49) U/L Alkaline Phosphatase 108 (38-126) U/L Total Protein 8.1 (6.3-8.2) g/dL Albumin 4.4 (3.5-5.0) g/dL - Imaging CT scan - chest: report reviewed, image reviewed EKG: image reviewed Assessment and Plan Assessment: 1. Pericardial effusion 2. Shortness of breath and chest pain, possibly secondary to above 3. Leukocytosis, possibly secondary to above 4. Hyponatremia admission sodium of 128 5. History of hypertension 6. History of hyperlipidemia 7. Diabetes mellitus type 2 8. Peripheral arterial disease with history of recent stent placement to his left external iliac in April 2021 9. History of pulmonary fibrosis, shown on recent low-dose computed tomography scan of his chest 10. History of COPD 11. History of tobacco dependence for over 50 years, quit smoking in November 2020 Plan: The patient was seen and examined at his bedside in the emergency department. His chart and diagnostics were reviewed. His case was discussed in detail with Dr. Nuno Garcia from cardiothoracic surgery. A transthoracic 2-D echocardiogram was completed, the results demonstrated a normal left ventricular size, moderate concentric left ventricular hypertrophy with an overall systolic function to be normal with an ejection fraction 55-60%, and a moderate generalized pericardial effusion with no evidence of pericardial tamponade. The patient remains hemodynamically stable and no surgical intervention is warranted at this time. Cardiology has been consulted for further treatment recommendations. Medical management other comorbidities per primary care service. More recommendations to follow based on patient's clinical course. Thank you for this consult and we'll look forward to working with you in the care of this patient. Time with Patient: Greater than 30
--- NOTE | 2021-09-16 18:44 | P.CRDCN ---
History of Present Illness History of present illness: Patient is a pleasant 71 year old male with history of PAD s/p peripheral angioplasty by Dr Block, DM 2, asthma, obesity, pulmonary fibrosis who presented with chest pressure sensation which was worse with lying flat and worse with deep inspiration. He had a flu vaccination and then started feeling the chest pain episodes off and on. He more recently started feeling SOB and was having chest pain which was then occurring with sitting up and more consistently and therefore came to ER. He was noted to have pericardial effusion on CT thorax with no PE and dependent atelectasis. EKG shows sinus tachycardia with HR 105, minimal ST elevations inferior leads and lateral leads with some [place] depression. REVIEW OF SYSTEMS: At the time of my exam: CONSTITUTIONAL: Denies fever or chills. HEENT: Denies blurred vision, vision changes, or eye pain. Denies hemoptysis CARDIOVASCULAR: Denies chest pain. Denies orthopnea. Denies PND. Denies palpitations RESPIRATORY: Denies shortness of breath. GASTROINTESTINAL: Denies abdominal pain. Denies nausea or vomiting. HEMATOLOGIC: Denies bleeding disorders. GENITOURINARY: Denies any blood in urine. SKIN: Denies pruitis. Denies rash. PHYSICAL EXAM: VITAL SIGNS: Reviewed. GENERAL: Well-developed in no acute distress. HEENT: Head is normocephalic. Pupils are equal, round. Sclerae anicteric. Mucous membranes of the mouth are moist. Neck supple. No JVD or thyromegaly LUNGS: Respirations even and unlabored. Lungs with bilateral wheezing and bibasilar rales. HEART: Regular rate and rhythm. S1 and S2 heard. ABDOMEN: Soft. Nondistended. Nontender. EXTREMITIES: Normal range of motion. No clubbing or cyanosis. Peripheral pulses intact. Bilateral lower extremity edema noted, right worse than left NEUROLOGIC: Awake and alert. Oriented x 3. ASSESSMENT: Moderate pericardial effusion without tamponade Pericarditis Chest pain, likely related to pericarditis Leukocytosis PAD s/p peripheral intervention DM2 History of pulmonary fibrosis COPD Previous tobacco abuse quit 12/05 HTN PLAN: Patient's presentation and EKG appear consistent with pericarditis with mild elevations in the inferior leads and LA depression with chest pain worse with lying down and improved with sitting forward. We will start treatment with colchicine and NSAIDs. Monitor Cr closely. No current need for drainage and we will continue to monitor response of medical therapy. Further recs to follow. Past Medical History Past Medical History: COPD, Diabetes Mellitus, GERD/Reflux, Hyperlipidemia, Hypertension, Vascular Disorder Additional Past Medical History / Comment(s): hx of peptic ulcer, pain carmelo legs History of Any Multi-Drug Resistant Organisms: None Reported Past Surgical History: Orthopedic Surgery Additional Past Surgical History / Comment(s): left ankle ORIF with metal, now removed. Left external iliac stent placement for peripheral arterial disease in April 2021. Past Anesthesia/Blood Transfusion Reactions: No Reported Reaction Past Psychological History: Depression Smoking Status: Former smoker (Quit smoking in November 2020) Past Alcohol Use History: None Reported Past Drug Use History: None Reported - Past Family History Father Family Medical History: Myocardial Infarction ([place]) Additional Family Medical History / Comment(s): Father of a [place] at the age of 84 yrs. Mother Additional Family Medical History / Comment(s): Mother was found at the age of 42yrs. Medications and Allergies Home Medications Medication Instructions Recorded Confirmed Type Aspirin [Adult Low Dose Aspirin EC] 81 mg PO DAILY 05/05/21 09/15/21 History Atorvastatin [Lipitor] 40 mg PO DAILY 05/05/21 09/15/21 History Cyanocobalamin [Vitamin B-12] 500 mcg PO MOTUWETHFR 05/05/21 09/15/21 History NIFEdipine [NIFEdipine ER] 30 mg PO DAILY 05/05/21 09/15/21 History lisinopriL [Zestril] 5 mg PO DAILY 05/05/21 09/15/21 History metFORMIN HCL [Glucophage] 500 mg PO BID 05/05/21 09/15/21 History Clopidogrel [Plavix] 75 mg PO DAILY #30 tablet 05/07/21 09/15/21 Rx Ergocalciferol (Vitamin D2) 1,250 mcg PO FR 09/15/21 09/15/21 History [Drisdol (50,000 Iu)] Fluticasone Nasal [place] [Flonase 1 spray EA NOSTRIL DAILY 09/15/21 09/15/21 History Nasal [place]] Montelukast [Singulair] 10 mg PO DAILY 09/15/21 09/15/21 History Allergies Allergy/AdvReac Type Severity Reaction Status Date / Time No Known Allergies Allergy Verified 09/15/21 19:37 Physical Exam Vitals: Vital Signs Temp Pulse Resp BP Pulse Ox 09/16/21 10:22 97.4 F L 09/16/21 10:17 123 H 18 155/97 94 L 09/16/21 05:00 98.1 F 110 H 18 147/95 93 L 09/16/21 03:00 109 H 18 93 L 09/16/21 01:00 112 H 18 93 L 09/15/21 23:30 106 H 18 94 L 09/15/21 22:29 97.6 F 113 H 22 137/79 96 09/15/21 18:48 100 20 149/83 100 Intake and Output 09/16/21 09/16/21 09/16/21 06:59 14:59 22:59 Other: Weight 81.647 kg Results 09/16/21 03:07 09/16/21 03:07 Cardiac Enzymes 09/16/21 09/16/21 Range/Units 00:04 03:07 Troponin I <0.012 <0.012 (0.000-0.034) ng/mL Coagulation 09/15/21 Range/Units 17:57 PT 10.8 (9.0-12.0) sec APTT 24.9 (22.0-30.0) sec CBC 09/16/21 Range/Units 03:07 WBC 20.9 H (3.8-10.6) k/uL RBC 4.11 L (4.30-5.90) m/uL Hgb 13.0 (13.0-17.5) gm/dL Hct 37.1 L (39.0-53.0) % Plt Count 278 (150-450) k/uL Comprehensive Metabolic Panel 09/16/21 Range/Units 03:07 Sodium 125 L (137-145) mmol/L Potassium 4.9 (3.5-5.1) mmol/L Chloride 95 L (98-107) mmol/L Carbon Dioxide 18 L (22-30) mmol/L BUN 23 H (9-20) mg/dL Creatinine 1.07 (0.66-1.25) mg/dL Glucose 194 H (74-99) mg/dL Calcium 8.8 (8.4-10.2) mg/dL Current Medications Generic Name Dose Route Start Last Admin Trade Name Freq PRN Reason Stop Dose Admin Atorvastatin Calcium 40 mg 09/16/21 09:00 09/16/21 10:16 Atorvastatin 40 Mg Tab PO 40 mg DAILY KEAGAN Administration Colchicine 0.6 mg 09/16/21 11:00 09/16/21 11:16 Colchicine 0.6 Mg Each PO 0.6 mg DAILY KEAGAN Administration Fluticasone Propionate 1 spray 09/17/21 09:00 Fluticasone 50mcg/[place] Nasal 16gm EA NOSTRIL DAILY [facility] Ibuprofen 800 mg 09/16/21 16:00 09/16/21 11:16 Ibuprofen 800 Mg Tab PO 800 mg TID KEAGAN Administration Insulin Aspart 0 unit 09/16/21 12:30 09/16/21 13:20 Insulin Aspart (Novolog) 100 Unit/Ml Vial SQ 1 unit ACHS KEAGAN Administration Protocol Lisinopril 5 mg 09/16/21 11:30 09/16/21 12:28 Lisinopril 5 Mg Tab PO 5 mg DAILY KEAGAN Administration Montelukast Sodium 10 mg 09/16/21 09:00 09/16/21 10:16 Montelukast 10 Mg Tab PO 10 mg DAILY KEAGAN Administration Naloxone HCl 0.2 mg 09/15/21 22:15 Naloxone 0.4 Mg/Ml 1 Ml Vial IV Q2M PRN Opioid Reversal Nifedipine 30 mg 09/16/21 11:30 09/16/21 13:19 Nifedipine Xl 30 Mg Tab.Er.24 PO 30 mg DAILY KEAGAN Administration Pantoprazole Sodium 40 mg 09/16/21 11:00 09/16/21 11:16 Pantoprazole 40 Mg Tablet PO 40 mg [id number] KEAGAN Administration Intake and Output 09/16/21 09/16/21 09/16/21 06:59 14:59 22:59 Other: Weight 81.647 kg Patient Weight 09/17/21 06:59 Weight 81.647 kg 09/16/21 03:07 09/16/21 03:07
[2021-09-16 20:18] LABS: Glucose,Whole Blood 167 mg/dL (75-99)
[2021-09-17 03:46] LABS: HCT 32.1 % (39.0-53.0); HGB 10.7 gm/dL (13.0-17.5); MCH 31.1 pg (25.0-35.0); MCHC 33.5 g/dL (31.0-37.0); MCV 92.9 fL (80.0-100.0); Platelet Count 236 k/uL (150-450); RBC 3.46 m/uL (4.30-5.90); RDW 13.1 % (11.5-15.5); WBC 13.8 k/uL (3.8-10.6)
[2021-09-17 04:16] LABS: Calcium 8.6 mg/dL (8.4-10.2); Potassium 4.3 mmol/L (3.5-5.1)
[2021-09-17 06:26] LABS: Glucose,Whole Blood 101 mg/dL (75-99)
[2021-09-17] MEDS: INSULIN ASPART (NovoLOG) 100 UNIT/ML VIAL SQ SCH ×4 (06:42→22:48)
[2021-09-17] MEDS: PANTOPRAZOLE 40 MG TABLET PO SCH (07:02)
[2021-09-17] MEDS: IBUPROFEN 800 MG TAB PO SCH (08:39)
[2021-09-17] MEDS: ATORVASTATIN 40 MG TAB PO SCH (08:40)
[2021-09-17] MEDS: COLCHICINE 0.6 MG EACH PO SCH (08:40)
[2021-09-17] MEDS: lisinopriL 5 MG TAB PO SCH (08:40)
[2021-09-17] MEDS: MONTELUKAST 10 MG TAB PO SCH (08:40)
[2021-09-17] MEDS: NIFEdipine XL 30 MG TAB.ER.24 PO SCH (08:40)
[2021-09-17] MEDS ORDERED: SODIUM CHLORIDE 0.9% 1,000 ML IV SCH (09:30)
[2021-09-17] MEDS: SODIUM CHLORIDE 0.9% 1,000 ML IV SCH ×2 (09:51→22:46)
[2021-09-17] MEDS: FLUTICASONE 50MCG/SPRAY NASAL 16GM EA NOSTRIL SCH (10:20)
--- NOTE | 2021-09-17 11:31 | P.PN ---
Subjective Progress Note Date: 09/17/21 Principal diagnosis: Pericardial effusion. Past medical history significant for hypertension, hyperlipidemia, diabetes mellitus type 2, lower extremity peripheral arterial disease, status post stent placement to his left external iliac artery in April 2021, bilateral lower extremity neuropathy, asthma, obesity with a BMI 26.6 kg/m2 pulmonary fibrosis, mild to moderate per computed tomography scan of his chest in September 2020, and history of tobacco dependence quit smoking in November 2020. The patient is seen in follow-up today 09/17/2021 at his bedside in the emergency department. Currently he is lying in bed, is awake, alert and oriented 3 and is in no acute apparent distress. The patient denies any complaints of pain or shortness of breath at this time. He reports he feels much improved today and is anxious to be discharged home. Bedside telemetry showing normal sinus rhythm heart rate 89 BPM, his blood pressure is currently 108/63 with a map of 78. Oxygen saturations are 95% on room air. His been afebrile the last 24 hours. He was seen by cardiology yesterday and was started on colchicine and Motrin as they felt his pericardial effusion was pericarditis. Laboratory results this morning show a WBC count trending down of 13.8, hemoglobin 10.7, hematocrit 32.1, platelets 236, sodium 126, BUN 34 and creatinine 1.64. Due to the patient's elevated BUN and creatinine the Motrin has been discontinued. Objective - Vital Signs Vital signs: Vital Signs Temp 98.5 F 09/17/21 08:38 Pulse 92 09/17/21 08:38 Resp 18 09/17/21 08:38 BP 108/63 09/17/21 08:38 Pulse Ox 95 09/17/21 08:38 Intake & Output 09/16/21 09/17/21 09/17/21 18:59 06:59 18:59 Intake Total 240 240 Output Total 200 Balance 40 240 Weight 81.647 kg Intake: Oral 240 240 Output: Urine 200 Other: # Voids 1 1 - Exam CONSTITUTIONAL: Laying in bed in the emergency room, appears comfortable, cooperative, no apparent acute distress. HEENT: Neck is supple, no JVD, no lymphadenopathy. RESPIRATORY: Lungs sounds essentially clear throughout, diminished to his bilateral bases, with some few scattered crackles to his bilateral bases. Respirations are symmetrical and nonlabored. Currently on room air with oxygen saturations 95%. Strong cough. CARDIOVASCULAR: Regular rhythm and rate. S1 and S2 present, negative for S3, or gallop. Soft systolic murmur heard best to his left sternal border. No edema present to his bilateral lower extremities. Bedside telemetry showing normal sinus rhythm heart rate 89 BPM. GASTROINTESTINAL: Abdomen soft, nontender, nondistended. Active bowel sounds present 4 quadrants. Tolerating diet. Passing flatus. No guarding or rigidity. GENITOURINARY: Continues to void. INTEGUMENTARY: Skin is warm and dry with no evidence of clubbing or cyanosis. NEUROLOGIC: Cranial nerves II through XII intact. No focal or motor deficits. MUSKULOSKELETAL: Able to move all extremities, strength equal bilaterally. Gait normal. PSYCHIATRIC: Alert and oriented to person place and time, appropriate affect, intact judgment and insight. - Allied health notes Allied health notes reviewed: nursing - Labs CBC & Chem 7: 09/17/21 02:40 09/17/21 02:40 Labs: Abnormal Lab Results - Last 24 Hours (Table) 09/16/21 09/16/21 09/17/21 Range/Units 13:12 20:13 02:40 WBC 13.8 H (3.8-10.6) k/uL RBC 3.46 L (4.30-5.90) m/uL Hgb 10.7 L (13.0-17.5) gm/dL Hct 32.1 L (39.0-53.0) % Sodium (137-145) mmol/L Chloride (98-107) mmol/L BUN (9-20) mg/dL Creatinine (0.66-1.25) mg/dL Glucose (74-99) mg/dL POC Glucose (mg/dL) 164 H 167 H (75-99) mg/dL 09/17/21 09/17/21 Range/Units 02:40 06:25 WBC (3.8-10.6) k/uL RBC (4.30-5.90) m/uL Hgb (13.0-17.5) gm/dL Hct (39.0-53.0) % Sodium 126 L (137-145) mmol/L Chloride 92 L (98-107) mmol/L BUN 34 H (9-20) mg/dL Creatinine 1.64 H (0.66-1.25) mg/dL Glucose 107 H (74-99) mg/dL POC Glucose (mg/dL) 101 H (75-99) mg/dL Microbiology - Last 24 Hours (Table) 09/15/21 12:25 Blood Culture - Preliminary Blood No Growth after 24 hours Assessment and Plan Assessment: 1. Pericardial effusion, consistent with pericarditis, no physiology of tamponade 2. Shortness of breath and chest pain, possibly secondary to above 3. Leukocytosis, possibly secondary to above 4. Hyponatremia admission sodium of 128 5. History of hypertension 6. History of hyperlipidemia 7. Diabetes mellitus type 2 8. Peripheral arterial disease with history of recent stent placement to his left external iliac in April 2021 9. History of pulmonary fibrosis, shown on recent low-dose computed tomography scan of his chest 10. History of COPD 11. History of tobacco dependence for over 50 years, quit smoking in November 2020 Plan: 1. Dr. Rodriguez met with the patient, chart and diagnostics reviewed. The pericardial effusion is felt to be pericarditis with no physiology of tamponade. No surgical intervention is warranted at this time. 2. Continue colchicine managed by cardiology. Motrin has been discontinued by cardiology due to the patient's elevation in BUN and creatinine. 3. Increase activity as tolerated. Out of bed for all meals. 4. Medical management and other comorbidities per primary care service. 5. We will continue to see the patient on an as-needed basis. Please contact c ardiothoracic surgery service for further questions. Time with Patient: Greater than 30
[2021-09-17 13:08] LABS: Glucose,Whole Blood 135 mg/dL (75-99)
--- NOTE | 2021-09-17 14:51 | P.PN ---
Subjective Progress Note Date: 09/17/21 HISTORY OF PRESENT ILLNESS: Patient is a pleasant 71 year old male with history of PAD s/p peripheral angioplasty by Dr Block, DM 2, asthma, obesity, pulmonary fibrosis who presented with chest pressure sensation which was worse with lying flat and worse with deep inspiration. He had a flu vaccination and then started feeling the chest pain episodes off and on. He more recently started feeling SOB and was having chest pain which was then occurring with sitting up and more consistently and therefore came to ER. He was noted to have pericardial effusion on CT thorax with no PE and dependent atelectasis. EKG shows sinus tachycardia with HR 105, minimal ST elevations inferior leads and lateral leads with some [place] depression. 09/17/2021 Patient examined at the bedside. Patient denies chest pain or pressure. Denies shortness of breath. Creatinine increased today to 1.64. Vital signs stable. PHYSICAL EXAM: VITAL SIGNS: Reviewed. GENERAL: Well-developed in no acute distress. NECK: Supple. No JVD or thyromegaly LUNGS: Respirations even and unlabored. Lungs diminished to auscultation bilaterally. HEART: Regular rate and rhythm. S1 and S2 heard. EXTREMITIES: Normal range of motion. No clubbing or cyanosis. Peripheral pu lses intact. Bilateral lower extremity edema noted. ASSESSMENT: Moderate pericardial effusion without tamponade Pericarditis Chest pain, likely related to pericarditis Leukocytosis PAD s/p peripheral intervention DM2 History of pulmonary fibrosis COPD Previous tobacco abuse quit 12/05 HTN Acute kidney injury PLAN: Discontinue Motrin May continue Lisinopril per Dr. Sol Begin IVF at 100cc/hr Monitor kidney function Continue colchicine CTS following Further recommendations pending patient course Nurse practitioner note has been reviewed by physician. Signing provider agrees with the documented findings, assessment, and plan of care. Objective - Vital Signs Vital signs: Vital Signs Temp 98.1 F 09/17/21 12:45 Pulse 96 09/17/21 14:31 Resp 18 09/17/21 14:31 BP 105/57 09/17/21 14:31 Pulse Ox 97 09/17/21 14:31 Intake & Output 09/16/21 09/17/21 09/17/21 18:59 06:59 18:59 Intake Total 240 240 Output Total 200 Balance 40 240 Weight 81.647 kg Intake: Oral 240 240 Output: Urine 200 Other: # Voids 1 1 - Labs CBC & Chem 7: 09/17/21 02:40 09/17/21 02:40 Labs: Abnormal Lab Results - Last 24 Hours (Table) 09/16/21 09/17/21 09/17/21 Range/Units 20:13 02:40 02:40 WBC 13.8 H (3.8-10.6) k/uL RBC 3.46 L (4.30-5.90) m/uL Hgb 10.7 L (13.0-17.5) gm/dL Hct 32.1 L (39.0-53.0) % Sodium 126 L (137-145) mmol/L Chloride 92 L (98-107) mmol/L BUN 34 H (9-20) mg/dL Creatinine 1.64 H (0.66-1.25) mg/dL Glucose 107 H (74-99) mg/dL POC Glucose (mg/dL) 167 H (75-99) mg/dL 09/17/21 09/17/21 Range/Units 06:25 12:51 WBC (3.8-10.6) k/uL RBC (4.30-5.90) m/uL Hgb (13.0-17.5) gm/dL Hct (39.0-53.0) % Sodium (137-145) mmol/L Chloride (98-107) mmol/L BUN (9-20) mg/dL Creatinine (0.66-1.25) mg/dL Glucose (74-99) mg/dL POC Glucose (mg/dL) 101 H 135 H (75-99) mg/dL Microbiology - Last 24 Hours (Table) 09/15/21 12:25 Blood Culture - Preliminary Blood No Growth after 24 hours
[2021-09-17] MEDS ORDERED: IBUPROFEN 600 MG TAB PO STA (17:36)
[2021-09-17 17:39] LABS: Glucose,Whole Blood 138 mg/dL (75-99)
[2021-09-17 20:40] LABS: Glucose,Whole Blood 119 mg/dL (75-99)
[2021-09-18 05:15] VITALS: RESP 18
[2021-09-18 06:08] LABS: Glucose,Whole Blood 133 mg/dL (75-99)
[2021-09-18] MEDS: PANTOPRAZOLE 40 MG TABLET PO SCH (06:47)
[2021-09-18] MEDS: INSULIN ASPART (NovoLOG) 100 UNIT/ML VIAL SQ SCH ×2 (08:30→11:56)
[2021-09-18 08:41] VITALS: BP 118/68; PULSE 101; TEMP 97.9
[2021-09-18] MEDS: MONTELUKAST 10 MG TAB PO SCH (08:41)
[2021-09-18] MEDS: SODIUM CHLORIDE 0.9% 1,000 ML IV SCH (08:41)
[2021-09-18] MEDS: ATORVASTATIN 40 MG TAB PO SCH (08:41)
[2021-09-18] MEDS: NIFEdipine XL 30 MG TAB.ER.24 PO SCH (08:41)
[2021-09-18] MEDS: FLUTICASONE 50MCG/SPRAY NASAL 16GM EA NOSTRIL SCH (08:42)
[2021-09-18] MEDS: COLCHICINE 0.6 MG EACH PO SCH (08:42)
[2021-09-18 09:14] LABS: MCH 31.8 pg (25.0-35.0); MCHC 34.5 g/dL (31.0-37.0); Mean Platelet Volume 10.6; Platelet Count 300 k/uL (150-450); RBC 3.47 m/uL (4.30-5.90); RDW 13.8 % (11.5-15.5); WBC 10.1 k/uL (3.8-10.6)
[2021-09-18 09:44] LABS: Calcium 8.6 mg/dL (8.4-10.2); Potassium 4.6 mmol/L (3.5-5.1)
[2021-09-18 11:52] LABS: Glucose,Whole Blood 130 mg/dL (75-99)
[2021-09-18 12:09] LABS: Appearance,Urine Clear (Clear); Bilirubin,Urine Negative (Negative); Blood,Urine Negative (Negative); Color,Urine Light Yellow; Glucose,Urine (UA) Negative (Negative); Ketones,Urine Negative (Negative); Leukocyte Esterase,Urine Negative (Negative); Nitrite,Urine Negative (Negative); PH, Urine 5.5 (5.0-8.0); Protein,Urine Negative (Negative); Specific Gravity,Urine 1.009 (1.001-1.035); Urobilinogen,Urine <2.0 mg/dL (<2.0)
--- NOTE | 2021-09-18 12:41 | P.PN ---
Subjective Progress Note Date: 09/17/21 HISTORY OF PRESENT ILLNESS This is a 71-year-old male patient of Dr. Monge with past medical history of mild intermittent asthma, diabetes mellitus type 2, hypertension, hyperlipide ben, peripheral artery disease, remote history of tobacco use. Patient states that he has had chest pain for the past 2-3 weeks and then developed difficulty taking a deep breath. He started taking Motrin when the pain lasted longer. He is now having shortness of breath and pain with breathing and came into the hospital for further evaluation. Patient was found to be afebrile, heart rate 107, blood pressure 165/88, pulse ox 97% on room air. EKG was a sinus tachycardia, T-wave inversion in lead [address] angiogram of the chest was negative for PE. Moderate pericardial effusion. Dependent atelectasis with trace left pleural effusion. Echocardiogram reveals EF of 55-60% with moderate concentric left hypertrophy, moderate generalized pericardial effusion. Patient is seen today in the emergency center waiting for a bed on the cardiac stepdown unit, consult in place with cardiology and cardiothoracic surgery regarding her cardial effusion. 09/17: Patient continues to be followed by cardiothoracic surgery and cardiology. Patient has already been started on colchicine for pericarditis per cardiology. There's been no sign of tamponade. Patient has been afebrile, heart rate 99, blood pressure 127/70, pulse ox 93% on room air. Repeat blood work reveals WBC 13.8, hemoglobin 10.7, platelet count 236. Sodium 126, potassium 4.3, chloride 92, CO2 22, BUN 34 creatinine 1.64. We have discontinued lisinopril and patient's been started on IV fluids 100 mL per hour. Patient is seen today for the second day in the emergency center waiting for bed on the cardiac stepdown unit. REVIEW OF SYSTEMS Constitutional: No fever, no chills, no night sweats. No weight change. No weakness, fatigue or lethargy. No daytime sleepiness. EENT: No headache. No blurred vision or double vision, no loss of vision. No loss of Hearing, no ringing in the ears, no dizziness. No nasal drainage or congestion. No epistaxis. No sore throat. Lungs: No shortness of breath, cough, no sputum production. No wheezing. Cardiovascular: No chest pain, no lower extremity edema. No palpitations. No paroxysmal nocturnal dyspnea. No orthopnea. No lightheadedness or dizziness. No syncopal episodes. Abdominal: No abdominal pain. No nausea, vomiting. No diarrhea. No constipation. No bloody or tarry stools. No loss of appetite. Genitourinary: No dysuria, increased frequency, urgency. No urinary retention. Musculoskeletal: No myalgias. No muscle weakness, no gait dysfunction, no frequent falls. No back pain. No neck pain. Integumentary: No wounds, no lesions. No rash or pruritus. No unusual bruising. No change in hair or nails. Neurologic: No aphasia. No facial droop. No change in mentation. No head injury. No headache. No paralysis. No paresthesia. Psychiatric: No depression. No anxiety. No mood swings. Endocrine: No abnormal blood sugars. No weight change. PHYSICAL EXAMINATION Gen: This is 71-year-old male, resting in bed in the ER and appears to be comfortable, no acute respiratory distress noted. HEENT: Head is atraumatic, normocephalic. Pupils equal, round. Sclerae is anicteric. NECK: Supple. No JVD. No lymphadenopathy. No thyromegaly. LUNGS: Lung sounds diminished bilaterally. No wheezes or rhonchi. No intercostal retractions. HEART: Irregular rate and rhythm. No murmur. ABDOMEN: Soft. Bowel sounds are present. No masses. No tenderness. EXTREMITIES: No pedal edema. No calf tenderness. NEUROLOGICAL: Patient is awake, alert and oriented x3. Cranial nerves 2 through 12 are grossly intact. ASSESSMENT AND PLAN 1. Chest pain secondary to pericarditis. Patient to be admitted to the cardiac stepdown unit, cardiology consult appreciated. Patient has been started on colchicine.. 2. Pericardial effusion without tamponade. Consult cardiology and cardio thoracic surgery. Patient has been started on colchicine 0.6 mg daily, Motrin 800 mg 3 times daily. Patient is followed by cardiothoracic surgery. 3. Hyponatremia. Patient's been on IV fluid, continue to monitor. 4. Diabetes mellitus type 2. Metformin on hold. Continue NovoLog scale before meals and at bedtime. 5. Hypertension. Continue lisinopril 5 mg daily, Procardia XL 30 mg daily. 6. Hyperlipidemia. Continue Lipitor 40 mg daily. 7. Peripheral artery disease. Resume patient on Plavix 75 mg daily and aspirin once cleared by cardiothoracic surgery. 8. Mild intermittent asthma without exacerbation. Continue Flonase and Singulair. 9. GI prophylaxis. Protonix. 10. DVT prophylaxis. DISCHARGE PLAN Home Impression and plan of care have been directed as dictated by the signing physician. Mary Patel nurse practitioner acting as scribe for signing physician. Objective - Vital Signs Vital signs: Vital Signs Temp 98.5 F 09/17/21 08:38 Pulse 92 09/17/21 08:38 Resp 18 09/17/21 08:38 BP 108/63 09/17/21 08:38 Pulse Ox 95 09/17/21 08:38 Intake & Output 09/16/21 09/17/21 09/17/21 18:59 06:59 18:59 Intake Total 240 240 Output Total 200 Balance 40 240 Weight 81.647 kg Intake: Oral 240 240 Output: Urine 200 Other: # Voids 1 1 - Labs CBC & Chem 7: 09/18/21 08:36 09/18/21 08:36 Labs: Abnormal Lab Results - Last 24 Hours (Table) 09/16/21 09/16/21 09/17/21 Range/Units 13:12 20:13 02:40 WBC 13.8 H (3.8-10.6) k/uL RBC 3.46 L (4.30-5.90) m/uL Hgb 10.7 L (13.0-17.5) gm/dL Hct 32.1 L (39.0-53.0) % Sodium (137-145) mmol/L Chloride (98-107) mmol/L BUN (9-20) mg/dL Creatinine (0.66-1.25) mg/dL Glucose (74-99) mg/dL POC Glucose (mg/dL) 164 H 167 H (75-99) mg/dL 09/17/21 09/17/21 Range/Units 02:40 06:25 WBC (3.8-10.6) k/uL RBC (4.30-5.90) m/uL Hgb (13.0-17.5) gm/dL Hct (39.0-53.0) % Sodium 126 L (137-145) mmol/L Chloride 92 L (98-107) mmol/L BUN 34 H (9-20) mg/dL Creatinine 1.64 H (0.66-1.25) mg/dL Glucose 107 H (74-99) mg/dL POC Glucose (mg/dL) 101 H (75-99) mg/dL Microbiology - Last 24 Hours (Table) 09/15/21 12:25 Blood Culture - Preliminary Blood No Growth after 24 hours
--- NOTE | 2021-09-18 12:43 | P.DS ---
<Mary Patel A - Last Filed: 09/18/21 12:41> Providers Expected date of discharge: 09/18/21 Hospital Course: HISTORY OF PRESENT ILLNESS This is a 71-year-old male patient of Dr. Monge with past medical history of mild intermittent asthma, diabetes mellitus type 2, hypertension, hyperlipidemia, peripheral artery disease, remote history of tobacco use. Patient states that he has had chest pain for the past 2-3 weeks and then developed difficulty taking a deep breath. He started taking Motrin when the pain lasted longer. He is now having shortness of breath and pain with breathing and came into the hospital for further evaluation. Patient was found to be afebrile, heart rate 107, blood pressure 165/88, pulse ox 97% on room air. EKG was a sinus tachycardia, T-wave inversion in lead [address] angiogram of the chest was negative for PE. Moderate pericardial effusion. Dependent atelectasis with trace left pleural effusion. Echocardiogram reveals EF of 55-60% with moderate concentric left hypertrophy, moderate generalized pericardial effusion. Patient is seen today in the emergency center waiting for a bed on the cardiac stepdown unit, consult in place with cardiology and cardiothoracic surgery regarding her cardial effusion. 09/17: Patient continues to be followed by cardiothoracic surgery and cardiology. Patient has already been started on colchicine for pericarditis per cardiology. There's been no sign of tamponade. Patient has been afebrile, heart rate 99, blood pressure 127/70, pulse ox 93% on room air. Repeat blood work reveals WBC 13.8, hemoglobin 10.7, platelet count 236. Sodium 126, potassium 4.3, chloride 92, CO2 22, BUN 34 creatinine 1.64. We have discontinued lisinopril and patient's been started on IV fluids 100 mL per hour. Patient is seen today for the second day in the emergency center waiting for bed on the cardiac stepdown unit. 09/18: Patient denies any new complaints. He states his breathing status is improving. He has been seen by consultants and he states that he has been cleared for discharge by cardiology. Repeat blood work today reveals sodium of 132, renal function is improved with BUN of 33 creatinine 1.36. WBC is 10.1, hemoglobin 11. Urinalysis negative. Patient remains afebrile, heart rate 101, blood pressure 118/60, pulse ox 97% on room air. Patient will be discharged home today in stable condition. ASSESSMENT AND PLAN 1. Chest pain secondary to pericarditis. 2. Pericardial effusion without tamponade. 3. Hyponatremia. 4. Diabetes mellitus type 2. 5. Hypertension. 6. Hyperlipidemia. 7. Peripheral artery disease. 8. Mild intermittent asthma without exacerbation. DISCHARGE PLAN Home Impression and plan of care have been directed as dictated by the signing physician. Mary Patel nurse practitioner acting as scribe for signing physician. Patient Condition at Discharge: Good Plan - Discharge Summary Discharge Rx Participant: No New Discharge Prescriptions: New Colchicine [Colcrys] 0.6 mg PO DAILY #30 each Continue Cyanocobalamin [Vitamin B-12] 500 mcg PO MOTUWETHFR Atorvastatin [Lipitor] 40 mg PO DAILY lisinopriL [Zestril] 5 mg PO DAILY Aspirin [Adult Low Dose Aspirin EC] 81 mg PO DAILY Clopidogrel [Plavix] 75 mg PO DAILY #30 tablet metFORMIN HCL [Glucophage] 500 mg PO BID NIFEdipine [NIFEdipine ER] 30 mg PO DAILY Ergocalciferol (Vitamin D2) [Drisdol (50,000 Iu)] 1,250 mcg PO FR Fluticasone Nasal [place] [Flonase Nasal [place]] 1 spray EA NOSTRIL DAILY Montelukast [Singulair] 10 mg PO DAILY Discharge Medication List Aspirin [Adult Low Dose Aspirin EC] 81 mg PO DAILY 05/05/21 [History] Atorvastatin [Lipitor] 40 mg PO DAILY 05/05/21 [History] Cyanocobalamin [Vitamin B-12] 500 mcg PO MOTUWETHFR 05/05/21 [History] NIFEdipine [NIFEdipine ER] 30 mg PO DAILY 05/05/21 [History] lisinopriL [Zestril] 5 mg PO DAILY 05/05/21 [History] metFORMIN HCL [Glucophage] 500 mg PO BID 05/05/21 [History] Clopidogrel [Plavix] 75 mg PO DAILY #30 tablet 05/07/21 [Rx] Ergocalciferol (Vitamin D2) [Drisdol (50,000 Iu)] 1,250 mcg PO FR 09/15/21 [History] Fluticasone Nasal [place] [Flonase Nasal [place]] 1 spray EA NOSTRIL DAILY 09/15/21 [History] Montelukast [Singulair] 10 mg PO DAILY 09/15/21 [History] Colchicine [Colcrys] 0.6 mg PO DAILY #30 each 09/18/21 [Rx] Follow up Appointment(s)/Referral(s): Deysi Monge MD [Primary Care Provider] - 09/25/21 1:00 pm (APPOINTMENT IS WITH ALFONZO MCCLURE) Pascual Sol DO [STAFF PHYSICIAN] - 09/24/21 9:00 am Patient Instructions/Handouts: Hyponatremia (DC), Acute Pericarditis (DC), Pericardial Effusion (DC) Discharge Disposition: HOME SELF-CARE <Lamine Frias - Last Filed: 09/24/21 05:39> Providers Date of admission: 09/15/21 22:15 Attending physician: Lamine Frias Consults: 09/15/21 22:16 Consult Physician Urgent Consulting Provider: Nuno Garcia Consult Reason/Comments: pericardial effusion Do you want consulting provider notified?: Already Contacted 09/16/21 09:03 Consult Physician Routine Consulting Provider: Pascual Sol Consult Reason/Comments: Pericardial effusion Do you want consulting provider notified?: Yes Primary care physician: Deysi Monge Hospital Course: Greater than 35 minutes was utilized and coordinating patient's discharge.
[2021-09-18 13:16] VITALS: BMI 25.5
--- NOTE | 2021-09-18 13:41 | P.PN ---
Subjective Progress Note Date: 09/18/21 HISTORY OF PRESENT ILLNESS: Patient is a pleasant 71 year old male with history of PAD s/p peripheral angioplasty by Dr Block, DM 2, asthma, obesity, pulmonary fibrosis who presented with chest pressure sensation which was worse with lying flat and worse with deep inspiration. He had a flu vaccination and then started feeling the chest pain episodes off and on. He more recently started feeling SOB and was having chest pain which was then occurring with sitting up and more consistently and therefore came to ER. He was noted to have pericardial effusion on CT thorax with no PE and dependent atelectasis. EKG shows sinus tachycardia with HR 105, minimal ST elevations inferior leads and lateral leads with some ME depression. 09/17/2021 Patient examined at the bedside. Patient denies chest pain or pressure. Denies shortness of breath. Creatinine increased today to 1.64. Vital signs stable. 09/18/2021 Patient examined this morning at the bedside. He denies chest pain or pressure. Denies shortness of breath. Patient has been up ambulating without difficulty. Patient's creatinine improved today to 1.36. PHYSICAL EXAM: VITAL SIGNS: Reviewed. GENERAL: Well-developed in no acute distress. NECK: Supple. No JVD or thyromegaly LUNGS: Respirations even and unlabored. Lungs diminished to auscultation bilaterally. HEART: Regular rate and rhythm. S1 and S2 heard. EXTREMITIES: Normal range of motion. No clubbing or cyanosis. Peripheral pulses intact. Bilateral lower extremity edema noted. ASSESSMENT: Moderate pericardial effusion without tamponade Pericarditis Chest pain, likely related to pericarditis Leukocytosis PAD s/p peripheral intervention DM2 History of pulmonary fibrosis COPD Previous tobacco abuse quit 12/05 HTN Acute kidney injury PLAN: Continue current cardiac medications Patient is stable for discharge home today from a cardiac perspective Further recommendations pending patient course Nurse practitioner note has been reviewed by physician. Signing provider agrees with the documented findings, assessment, and plan of care. Objective - Vital Signs Vital signs: Vital Signs Temp 97.9 F 09/18/21 08:40 Pulse 101 H 09/18/21 08:40 Resp 18 09/18/21 08:40 BP 118/68 09/18/21 08:40 Pulse Ox 97 09/18/21 08:40 Intake & Output 09/17/21 09/18/21 09/18/21 18:59 06:59 18:59 Intake Total 240 1200 550 Output Total 2400 400 Balance 240 -1200 150 Weight 78.6 kg 78.6 kg Intake: IV 10 Invasive Line 1 10 Intake, IV Titration 1200 Amount Sodium Chloride 0.9% 1, 1200 000 ml @ 100 mls/hr IV . Q10H [place] Rx#:[id number] Oral 240 540 Output: Urine 2400 400 Other: # Voids 1 1 # Bowel Movements 1 - Labs CBC & Chem 7: 09/18/21 08:36 09/18/21 08:36 Labs: Abnormal Lab Results - Last 24 Hours (Table) 09/17/21 09/17/21 09/18/21 Range/Units 17:38 20:39 06:07 RBC (4.30-5.90) m/uL Hgb (13.0-17.5) gm/dL Hct (39.0-53.0) % Sodium (137-145) mmol/L Carbon Dioxide (22-30) mmol/L BUN (9-20) mg/dL Creatinine (0.66-1.25) mg/dL Glucose (74-99) mg/dL POC Glucose (mg/dL) 138 H 119 H 133 H (75-99) mg/dL 09/18/21 09/18/21 09/18/21 Range/Units 08:36 08:36 11:50 RBC 3.47 L (4.30-5.90) m/uL Hgb 11.0 L (13.0-17.5) gm/dL Hct 32.0 L (39.0-53.0) % Sodium 132 L (137-145) mmol/L Carbon Dioxide 18 L (22-30) mmol/L BUN 33 H (9-20) mg/dL Creatinine 1.36 H (0.66-1.25) mg/dL Glucose 227 H (74-99) mg/dL POC Glucose (mg/dL) 130 H (75-99) mg/dL Microbiology - Last 24 Hours (Table) 09/15/21 12:25 Blood Culture - Preliminary Blood No Growth after 48 hours
--- NOTE | 2021-09-19 09:35 | CDI ---
Documentation Clarification Form Date: 09/17/2021 03:17:00 PM From: Kelsi Silva RN, CCDS Admit Date: 09/15/2021 10:15:00 PM Patient Name: Heber Bai Visit Number: [id number] Discharge Date: 09/18/2021 02:52:00 PM ATTENTION: The Clinical Documentation Specialists (CDI) and [facility] Coding Staff appreciate your assistance in clarifying documentation. Please respond to the clarification below the line at the bottom and electronically sign. The CDI & [facility] Coding staff will review the response and follow-up if needed. Please note: Queries are made part of the Legal Health Record. If you have any questions, please contact the author of this message via ITS. Dr. Lamine Frias There is documentation of pericarditis in the cardiology consult on 09/16/2021. Additional clarification is requested. History/Risk Factors: COPD, Diabetes Mellitus, Hypertension, vascular disorder Clinical Indicators: 71-year-old male present to emergency department for evaluation of chest pressure sensation which as wore with lying flat and deep inspiration. He had flu vaccination and then started feeling chest pain episodes off and on. He reports feeling SOB with chest pain. 09/15 Vital signs: 165/88 107 18 96.8 97 % RA 09/15 WBC 21.6, Neutrophils 18.8, Troponin I <0.012 09/15 CT Thorax: pericardial effusion and dependent atelectasis, no PE. 09/15 EKG: Sinus tachycardia with HR 105, minimal ST elevations inferior leads and lateral leads with some VA depression. Treatment: Telemetry Monitoring Monitor kidney function Blood Cultures: Preliminary No growth after 72 hours Colchicine 0.6 MG PO Daily .9NS @100 MLS/HR NSAIDS 800 MG PO TID (09/16-09/17 DC) Can you please clarify the acuity, type and cause of pericarditis? [xx ] Acute pericarditis possible related to influenza vaccine [ ] Acute pericarditis due to bacterial (specify) [ ] Acute pericarditis due to viral etiology (further specify) [ ] Other, pericarditis, please specify [ ] Unable to determine (Template Last Revised: January 2021) MTDD
--- NOTE | 2021-09-30 15:21 | CONS ---
CONSULTATION DATE OF SERVICE: 09/16/21 I have seen, examined, and agree with the midlevel's findings. MMODL / IJN: [id number] / -[id number]
== END 2021-09-18 14:52 | disposition home or self-care (01) | DRG 315 ==
LOC: EC 17:17 → 3SCARD 22:15
PROVIDERS: ADMIT Internal Medicine Geriatric Medicine; ATTEND Internal Medicine Geriatric Medicine
DX: I31.3 Pericardial effusion (noninflammatory) (principal); E87.1 Hypo-osmolality and hyponatremia; J98.11 Atelectasis; N17.9 Acute kidney failure, unspecified; E78.5 Hyperlipidemia, unspecified; Z20.822 Contact with and (suspected) exposure to COVID-19; I10 Essential (primary) hypertension; J84.10 Pulmonary fibrosis, unspecified; J45.20 Mild intermittent asthma, uncomplicated; J44.9 Chronic obstructive pulmonary disease, unspecified; Z23 Encounter for immunization; Z79.02 Long term (current) use of antithrombotics/antiplatelets; Z79.82 Long term (current) use of aspirin; Z95.820 Peripheral vascular angioplasty status with implants and grafts; Z87.891 Personal history of nicotine dependence; Z87.11 Personal history of peptic ulcer disease; Z82.49 Family history of ischemic heart disease and other diseases of the circulatory system; Z79.899 Other long term (current) drug therapy; Z79.84 Long term (current) use of oral hypoglycemic drugs; K21.9 Gastro-esophageal reflux disease without esophagitis; E11.41 Type 2 diabetes mellitus with diabetic mononeuropathy; E11.51 Type 2 diabetes mellitus with diabetic peripheral angiopathy without gangrene; E66.9 Obesity, unspecified; Z68.26 Body mass index [BMI] 26.0-26.9, adult; D72.829 Elevated white blood cell count, unspecified; I31.9 Disease of pericardium, unspecified
CPT/HCPCS: 36415; 71275; 80048; 80053; 81003; 82272; 83690; 83735; 83880; 84484; 85025; 85027; 85379; 85610; 85730; 87040; 87635; 93005; 93306; 99285

== ENCOUNTER 2022-10-02 08:31 | Day surgery (SDC) | payer MEDICARE ==
[2022-09-30 11:30] VITALS: BMI 25.7
[~2022-10-02 08:31] MED LIST changes: -ASPIRIN 325 MG TAB PO PRN; +LACTATED RINGERS 1,000 ML IV SCH; -SODIUM CHLORIDE 0.9% 1,000 ML in EMPTY BAG 1 BAG IV ONE
[2022-10-02 09:09] VITALS: RESP 16; TEMP 97
[2022-10-02 09:17] LABS: Glucose,Whole Blood 153 mg/dL (70-110)
[2022-10-02] MEDS ORDERED: PROPOFOL 10 MG/ML 20 ML VIAL IV ONE (09:42)
--- NOTE | 2022-10-02 10:00 | P.PCN ---
Date of Procedure: 10/02/22 Procedure(s) Performed: BRIEF HISTORY: Patient is a 72-year-old pleasant white male scheduled for an elective colonoscopy as a part of evaluation of screening for colon cancer/positive cologuard PROCEDURE PERFORMED: Colonoscopy with biopsy and snare polypectomy PREOPERATIVE DIAGNOSIS: Screening for colon cancer/positive cologuard. IV sedation per Anesthesia. PROCEDURE: After informed consent was obtained, the patient, was brought into the endoscopy unit. IV sedation was administered by Anesthesia under continuous monitoring. Digital rectal examination was normal. Initially the Olympus CF-160 flexible video colonoscope was then inserted in the rectum, gradually advanced into the cecum without any difficulty. Careful examination was performed as the scope was gradually being withdrawn. Ileocecal valve and the appendiceal orifice were visualized and appeared normal. Prep was excellent. Mucosa of the cecum normal. In the ascending colon there was a 3-4 mm flat polyp removed by cold biopsy. Rest of the ascending colon, transverse colon, descending colon, sigmoid colon, and rectum appeared normal. [place] there was a 1 cm polyp removed by snare polyp rectum he. Scattered sigmoid diverticulosis seen. Retroflexion was performed in the rectum and no lesions were seen. The patient tolerated the procedure well. IMPRESSION: 3-4 mm flat ascending colon polyp status post cold biopsy 1 cm proximal rectal polyp status post polypectomy Scattered sigmoid diverticulosis RECOMMENDATIONS: Findings of this examination were discussed with the patient as well as his family. He was advised to follow with the biopsy results. If the biopsies adenoma she can have a repeat colonoscopy in 3 years..
[2022-10-02 10:36] VITALS: BP 110/64; PULSE 74
== END 2022-10-02 11:15 | disposition home or self-care (01) ==
LOC: ORWHC2ENDO 08:31
PROVIDERS: ATTEND Internal Medicine Gastroenterology
DX: Z12.11 Encounter for screening for malignant neoplasm of colon (principal); K63.5 Polyp of colon; K62.1 Rectal polyp; K57.30 Diverticulosis of large intestine without perforation or abscess without bleeding; R19.5 Other fecal abnormalities; E11.9 Type 2 diabetes mellitus without complications; K25.9 Gastric ulcer, unspecified as acute or chronic, without hemorrhage or perforation; I10 Essential (primary) hypertension; E78.5 Hyperlipidemia, unspecified; F32.A Depression, unspecified; Z98.890 Other specified postprocedural states; Z79.84 Long term (current) use of oral hypoglycemic drugs; Z79.899 Other long term (current) drug therapy
CPT/HCPCS: 45380; 45385; J2704; 88305

== ENCOUNTER → 2023-03-24 | Outpatient (CLI) | payer MEDICARE ==
--- NOTE | 2023-03-24 15:50 | XR ---
EXAMINATION TYPE: XR chest 2V DATE OF EXAM: 03/24/2023 COMPARISON: 01/13/2013 TECHNIQUE: PA and lateral views submitted. HISTORY: Pain FINDINGS: The lungs are clear and there is no pneumothorax, pleural effusion, or focal pneumonia. Heart size normal and no overt failure. Osseous structures demonstrate hypertrophic and degenerative changes of the spine. Atherosclerotic change aorta. There is a calcification along the humeral head likely the basis of calcific tendinosis of the rotato r cuff. Biapical pleural thickening. Hyperinflation suggests COPD. Chronic rib deformities along the left lateral rib cage. IMPRESSION: 1. No acute process. Correlate for COPD. 2. Linear changes involving the left upper lobe on the lateral view most typical scarring or atelecta sis.
--- NOTE | 2023-03-24 15:55 | XR ---
EXAMINATION TYPE: XR shoulder limited RT DATE OF EXAM: 03/24/2023 COMPARISON: NONE HISTORY: Pain TECHNIQUE: Three views are submitted. FINDINGS: The osseous structures are intact. There is no acute fracture or dislocation. The AC joint arthropa thy. IMPRESSION: 1. No acute process. If symptoms persist consider CT scan.
== END | disposition home or self-care (01) ==
LOC: RADXRMAIN 15:23
PROVIDERS: ATTEND Family Medicine
DX: S22.41XB Multiple fractures of ribs, right side, initial encounter for open fracture (principal); M25.511 Pain in right shoulder
CPT/HCPCS: 71046

== ENCOUNTER → 2023-04-14 | Outpatient (CLI) | payer MEDICARE ==
--- NOTE | 2023-04-14 14:53 | CT ---
EXAMINATION TYPE: CT chest wo con DATE OF EXAM: 04/14/2023 COMPARISON: Prior CT December 31, 2022 and older CTs HISTORY: Non specific abnormal finding on prior CT scans. CT DLP: 583 mGycm. Automated Exposure Control for Dose Reduction was Utilized. TECHNIQUE: CT scan of the thorax is performed without IV contrast. FINDINGS: LUNGS: Mild to moderate underlying emphysematous changes redemonstrated. Mild to moderate linear scar ring anteriorly in the left mid to lower lung is redemonstrated. Mild linear scarring in the right mi d lung anteriorly. Focal linear scarring posterior left lung apex redemonstrated. Mild to moderate sl ightly thickened linear scarring or atelectasis anterior left mid lung axial image 39 is new from mos t recent study. There is 1.2 x 0.9 cm anterior nodularity axial image 39 noted. No pleural effusion o r pneumothorax seen bilaterally. MEDIASTINUM: Lack of IV contrast is noted to limit evaluation for mediastinal and especially hilar ad enopathy. There are no definitive new Greater than 1 cm mediastinal lymph nodes. No cardiomegaly or pericardial effusion is seen. Moderat e three-vessel coronary artery calcification. OTHER: Tiny dependent gallstones or gallbladder sludge. There is 1.2 cm simple appearing thin-walled cyst centrally in the left kidney coronal image 68 IMPRESSION: Scattered mild to moderate linear scarring and/or atelectasis bilaterally redemonstrated. There is new slightly thickened scarring and/or atelectasis anterior left midlung with 1.2 x 0.9 cm nodular component favoring nodular thickened scarring. Advise PET CT follow-up to exclude true pulmon gia nodule.
== END | disposition home or self-care (01) ==
LOC: RADCTMAIN 13:53
PROVIDERS: ATTEND Family Medicine
DX: J43.9 Emphysema, unspecified (principal); J98.11 Atelectasis; R91.8 Other nonspecific abnormal finding of lung field
CPT/HCPCS: 71250

== ENCOUNTER → 2023-06-12 | Outpatient (CLI) | payer MEDICARE ==
--- NOTE | 2023-06-12 10:21 | PE ---
EXAMINATION TYPE: PET CT fusion skull to thigh DATE OF EXAM: 06/12/2023 CLINICAL INDICATION:Male, 72 years old with history of C91.1 SPN; TECHNIQUE: Following the intravenous administration of 13.4 mCi of F-18 FDG, whole body images are performed from the skull base to the midthigh. Images are reviewed on the computer in the coronal, a xial, and sagittal planes. Reconstructed rotating images are created on independent workstation and reviewed on the computer. A non-contrast CT is performed in conjunction with the PET scan. Glucose level 157 mg/dL COMPARISON: CT 04/14/2023, PET/CT None, FINDINGS: Mediastinal SUV mean is 1.5. Hepatic parenchyma SUV mean is 1.8. SKULL BASE AND NECK: No suspicious radiotracer activity. CHEST, MEDIASTINUM, AND HILAR REGION: No suspicious radiotracer activity. * Area of concern is stable with max SUV 0.4. This is linear and thought to represent atelectasis/sc arring. * No abnormal FDG activity visualized in the lungs. ABDOMEN AND PELVIS: No suspicious radiotracer activity. MUSCULOSKELETAL STRUCTURES: No suspicious radiotracer activity. OTHER CT: Atherosclerosis of the arterial vasculature. Coronary artery cusp patient's. Scattered colo kaitlin diverticula. Nondistended urinary bladder with wall thickening. Prostate calcifications. Fat-cont aining inguinal hernias. IMPRESSION: No abnormal FDG activity visualized. Scattered areas of scarring are present throughout the lungs. No lymphadenopathy . Continued surveillance with low-dose lung cancer screening.
== END | disposition home or self-care (01) ==
LOC: RADPETMAIN 07:14
PROVIDERS: ATTEND Family Medicine
DX: J98.4 Other disorders of lung (principal); R91.1 Solitary pulmonary nodule
CPT/HCPCS: 78815; A9552